=== PATIENT | male | born 1965 | race Caucasian/White ===

== ENCOUNTER 2017-02-12 21:15 | Emergency (ER) | payer MEDICARE, MEDICAID ==
[~2017-02-12] VITALS: Ht 175.3 cm; Wt 65.4 kg
[2017-02-12] MEDS ORDERED: NS 1,000 ML IV SCH (21:25)
[2017-02-12] MEDS ORDERED: LORazepam 2 MG/ML VIAL (J2060) IV STA (21:27)
[2017-02-12 21:48] LABS: BASO % 0.7 % (0.0-1.0); EOS # 0.1 K/mm3 (0.0-0.50); EOS % 1.4 % (0.0-3.0); LARGE UNSTAINED CELL # 0.2 K/mm3 (0.0-0.4); LARGE UNSTAINED CELL % 3.5 % (0.0-4.0); LYMPH # 3.1 K/mm3 (1.5-4.5); LYMPH % 41.2 % (24.0-44.0); MEAN CORPUSCULAR HEMOGLOBIN 34.2 pg (27.0-33.0); MEAN CORPUSCULAR HGB CONC 35.8 g/dl (32.0-36.5); MEAN CORPUSCULAR VOLUME 95.4 fl (80.0-96.0); MONO # 0.5 K/mm3 (0.0-0.8); MONO % 6.7 % (0.0-5.0); NEUTROPHILS # 3.2 K/mm3 (1.8-7.7); NEUTROPHILS % 46.5 % (36.0-66.0); PLATELET COUNT, AUTOMATED 276 k/mm3 (150-450); RED CELL DISTRIBUTION WIDTH 12.3 % (11.5-14.5); WHITE BLOOD COUNT 6.9 K/mm3 (4.0-10.0)
[2017-02-12 22:15] LABS: ANION GAP 11 MEQ/L (8-16); BLOOD UREA NITROGEN 9 MG/DL (7-18); CALCIUM LEVEL 8.8 MG/DL (8.5-10.1); CARBON DIOXIDE LEVEL 27 MEQ/L (21-32); CHLORIDE LEVEL 101 MEQ/L (98-107); CREATININE FOR GFR 0.96 MG/DL (0.70-1.30); GLOMERULAR FILTRATION RATE > 60.0 (>56); GLUCOSE, FASTING 90 MG/DL (70-105); POTASSIUM SERUM 4.5 MEQ/L (3.5-5.1); SODIUM LEVEL 139 MEQ/L (136-145)
--- NOTE | 2017-02-12 22:20 | REPUSA ---
CT of the cervical spine Clinical history: Pain. Technique: Multiple axial CT images were obtained through the cervical spine without administration o f contrast. Coronal and sagittal 3-D reconstructed images were also obtained. Comparison: None. Findings: The cervical vertebral bodies are in satisfactory positioning and alignment. No fractures or dislocat ions are demonstrated. The odontoid process is intact. Intervertebral disc spaces are well-maintained . There is no evidence of facet subluxation. The neural foramen appear grossly patent. The cervical c ranial junction is intact. The cervical spinal canal demonstrates normal caliber and contour without evidence of spinal stenosis. The surrounding soft tissues are within normal limits. Impression: Unremarkable CT examination of the cervical spine.
--- NOTE | 2017-02-12 22:30 | REPUSA ---
CT of the head Clinical history: trauma. Technique: Multiple axial CT images were obtained through the head without administration of contrast . Comparison: 01/26/2016. Findings: The ventricles and sulci are symmetric bilaterally. There is no evidence of acute hemorrhag e or infarct. There is no midline shift, mass effect, or extra-axial fluid collection. The osseous st ructures are unremarkable. The visualized paranasal sinuses and mastoid air cells are clear. Impression: Negative study.
[2017-02-13 12:05] VITALS: BP 112/78
== END 2017-02-13 12:48 | disposition home or self-care (01) ==
LOC: EDBD 21:15 → M ED 22:15
DX: F10.129 Alcohol abuse with intoxication, unspecified (principal); F70 Mild intellectual disabilities
CPT/HCPCS: 70450; 72125; 80048; 85025; 93041; 94760; 96374; 99285; G0480; J2060

== ENCOUNTER 2017-03-03 16:55 | Inpatient (IN) | payer MEDICARE, MEDICAID ==
[~2017-03-03] VITALS: Ht 167.6 cm; Wt 68.2 kg
[2017-03-03] MEDS ORDERED: NS 1,000 ML IV SCH (19:30)
[2017-03-03 20:11] LABS: BASO # 0.1 K/mm3 (0.0-0.2); BASO % 0.8 % (0.0-1.0); EOS # 0.1 K/mm3 (0.0-0.50); LARGE UNSTAINED CELL # 0.2 K/mm3 (0.0-0.4); LARGE UNSTAINED CELL % 1.8 % (0.0-4.0); LYMPH # 2.1 K/mm3 (1.5-4.5); LYMPH % 18.2 % (24.0-44.0); MEAN CORPUSCULAR HEMOGLOBIN 33.8 pg (27.0-33.0); MEAN CORPUSCULAR HGB CONC 34.2 g/dl (32.0-36.5); MEAN CORPUSCULAR VOLUME 98.9 fl (80.0-96.0); MONO # 0.5 K/mm3 (0.0-0.8); NEUTROPHILS # 7.6 K/mm3 (1.8-7.7); NEUTROPHILS % 73.2 % (36.0-66.0); PLATELET COUNT, AUTOMATED 312 k/mm3 (150-450); RED CELL DISTRIBUTION WIDTH 12.2 % (11.5-14.5); WHITE BLOOD COUNT 10.4 K/mm3 (4.0-10.0)
--- NOTE | 2017-03-03 20:12 | REP ---
MAXILLOFACIAL CT WITHOUT CONTRAST: HISTORY: Trauma. COMPARISON: 12/24/2012 The sinuses are clear. The ostiomeatal units are patent. The middle and inferior nasal turbinates are partially paradoxical. There is minimal deviation of the nasal septum to the right. The cribriform plate, medial caceres of the orbits and optic canals are intact. The carotid canals form a segment of the posterolateral caceres of the sphenoid sinus. There is no fracture. Increased soft tissue density is present overlying the buccal surface of the right maxilla and body and angle of the right mandible consistent with edema and/or hematoma. A small amount of subarachnoid and intraventricular hemorrhage is present. IMPRESSION: 1. There is no acute or chronic sinusitis. 2. There is no fracture. 3. There is edema and/or hematoma along the buccal surface of the right maxilla and body and angle of the right mandible. 4. Small amount of subarachnoid and intraventricular hemorrhage. The results were discussed with Dr. More at 7:30 pm this date. Signed by Daniel Muñoz MD 03/04/2017 08:12 A
[2017-03-03 20:23] LABS: ANION GAP 5 MEQ/L (8-16); BLOOD UREA NITROGEN 9 MG/DL (7-18); CALCIUM LEVEL 8.8 MG/DL (8.5-10.1); CARBON DIOXIDE LEVEL 29 MEQ/L (21-32); CHLORIDE LEVEL 106 MEQ/L (98-107); CREATININE FOR GFR 0.77 MG/DL (0.70-1.30); GLOMERULAR FILTRATION RATE > 60.0 (>56); GLUCOSE, FASTING 80 MG/DL (70-105); POTASSIUM SERUM 4.2 MEQ/L (3.5-5.1); SODIUM LEVEL 140 MEQ/L (136-145)
--- NOTE | 2017-03-03 20:23 | REP ---
CT HEAD WITHOUT CONTRAST: HISTORY: Trauma. COMPARISON: 02/12/2017 A small focus of increased attenuation is present in the left frontal lobe. This represents a small amount of subarachnoid hemorrhage or a tiny hemorrhagic contusion. There is no intraparenchymal mass or midline shift. The ventricular system and cortical sulci are dilated consistent with mild volume loss. A small amount of intraventricular hemorrhage is present. A very small acute subdural hematoma 1.5 mm in width is present overlying the left temporal lobe. There is no fracture. The visualized sinuses are clear. IMPRESSION: 1. There is a small focus of subarachnoid hemorrhage or possibly small hemorrhagic contusion in the left frontal lobe. 2. Small amount of intraventricular hemorrhage. 3. Small 1.5 mm acute subdural hematoma over the left temporal lobe. The results were discussed with Dr. More at 7:45 pm this date. Signed by Daniel Muñoz MD 03/04/2017 08:12 A
--- NOTE | 2017-03-03 20:26 | REP ---
CT CERVICAL SPINE WITHOUT CONTRAST: HISTORY: Trauma. COMPARISON: 02/12/2017 There is no acute fracture or subluxation. Disc bulges with associated osteophyte formation are present at the C3-4, C5-6 and C6-7 levels. A disc bulge is present at the C4-5 level. There is minimal narrowing of the spinal canal. Uncinate process hypertrophy is present at the C3-4, C5-6 and C6-7 levels. This produces minimal to mild narrowing of the neural foramina. The remaining neural foramina are patent. The C3-4 through C6-7 intervertebral discs are decreased in height consistent with disc degeneration. IMPRESSION: 1. There is no acute fracture or subluxation. 2. There is cervical spondylosis at the C3-4 through C6-7 levels. Signed by Daniel Muñoz MD 03/04/2017 08:11 A
[2017-03-03 20:55] LABS: INR 0.92
--- NOTE | 2017-03-03 23:30 | IPNPDOC ---
Text Note Date of Service The patient was seen on 03/03/17. NOTE Pt seen and examined by me. Pt h/o chronic etoh abuse a/w mech fall and ICH. The draft radiology read is: "A small amount of intraventricular hemorrhage is present. A very small acute subdural hematoma 1.5 mm in width is present overlying the left temporal lobe". Pt's MS is stable w/o evidence of acute delirium. He does report JONES, but no visual changes, N/V. He reports no other medical hx and is not on home medication. At this time, pt does not require admission to medicine, with his presenting problem ICH. Thank you for this consult with full consult note to follow. Akhil Liu MD Mar 03, 2017 23:30
[2017-03-04] VITALS (10 sets, daily range): BP systolic 131–167; BP diastolic 68–88
--- NOTE | 2017-03-04 04:07 | CR.PDOC ---
[facility] Consultation Consultation DATE OF CONSULTATION: Mar 03, 2017 at 16:55 PRIMARY CARE PHYSICIAN: None REFERRING PROVIDER: Dr More ATTENDING PHYSICIAN: Dr. Liu REASON FOR CONSULTATION/CHIEF COMPLAINT: ICH. HISTORY OF PRESENT ILLNESS: 51m PMH of chronic low back pain, chronic etoh abuse and past hospitalizations for acute etoh intoxication who presents after mechanical fall. Pt brought in by EMS after fall and head trauma. Pt hx of chronic etoh abuse and has been to ED multiple times for acute etoh intoxication. Currently his only complaint is mild JONES, but has denied progressivly worsening JONES, N/V, visual changes, focal motor deficit. Pt does not have hx of prior bleed and denies any significant PMH or chronic home medications. Review of chart shows pt was awake on arrival, but was aggressive and abusive (verbal and physical) initially, but has since calmed down. ALLERGIES: Please see below. HOME MEDICATIONS: Please see below. PAST MEDICAL HISTORY: 1. Chronic ETOH abuse. 2. Chronic LBP. PAST SURGICAL HISTORY: 1. Appendectomy. 2. Repair of L forearm lac (cut on window). 3. Repair of multiple extensor tendons in arms. FAMILY HISTORY: Denied any significant family history SOCIAL HISTORY: Tobacco use: Daily smoker ETOH: Chronic daily drinker Illicit drug use: Denied IV drug use: Denied REVIEW OF SYSTEMS: As per HPI, but somewhat limited due to fact pt was intoxicated. PHYSICAL EXAMINATION: VITAL SIGNS: Please see below. GENERAL APPEARANCE: Disheveled. Sleeping, but easily awakened. HEENT: Moist mucous membranes. RESPIRATORY: Good AE B/L. CTA B/L. No wheeze/rales/rhonchi appreciated. CARDIOVASCULAR: Normal S1S2. No murmur/gallop/rub. ABDOMEN: Soft. Non-tender, Non-distended. Normal BS. EXTREMITIES: No edema. NEUROLOGICAL: Sleeping, but easily awakened. CN II-XII grossly intact. No anisocoria/tongue-deviation/facial droop noted. PSYCHIATRIC: Intoxicated, cooperative in NAD. LABORATORY DATA: Please see below. ASSESSMENT/PLAN: 51m PMH of chronic etoh abuse and acute etoh intoxication who presents with mechanical fall and multiple foci of ICH 1. ICH-L frontal SAH, Intraventricular hemorrhage, 1.5mm acute L temporal SDH Pt neurologically intact No coagulopathy, normal hemoglobin BP controlled Pt's only complaint is asking when he can go home 2. ETOH dependence with chronic etoh abuse and intoxication Pt has had prior admits for acute etoh intoxication In 2006 pt admitted to inpatient unit for acute intoxication and R arm laceration when cut his R forearm on glass requiring surgical intervention Seen by psych then and noted to have mild MR in addition to etoh dependence Pt is a poor historian who denies hx of DT's/delirium/withdrawal seizures When hospitalized in 2006 there is no documented evidence of severe withdrawal sx or DT's (obtained from DC summary) At this time would place pt on ciwa protocol Withdrawal and seizure precautions Will order librium prn-to be given based on pt's ciwa score Monitor and replete lytes prn (magnesium/potassium) Will order b12, folate and mvi as well Would avoid ativan while admitted given pt admitted with ICH and want to avoid over-sedating/masking signs of progressive ICH Thank you for the courtesy of this consult will follow with you. No medical intervention needed at this time Thank you for the courtesy of this consult Please re-consult prn Vital Signs/I&O Vital Signs Date Time Temp Pulse Resp B/P (MAP) Pulse Ox O2 Delivery O2 Flow Rate FiO2 03/03/17 23:33 89 98 03/03/17 23:18 107/58 (74) 03/03/17 16:59 98.8 20 Room Air Laboratory Data Labs 24H Laboratory Tests 2 03/03/17 19:51: White Blood Count 10.4H, Red Blood Count 4.33, Hemoglobin 14.6, Hematocrit 42.8 , Mean Corpuscular Volume 98.9H, Mean Corpuscular Hemoglobin 33.8H, Mean Corpuscular Hemoglobin Concent 34.2, Red Cell Distribution Width 12.2, Platelet Count 312, Neutrophils (%) (Auto) 73.2H, Lymphocytes (%) (Auto) 18.2L, Monocytes (%) (Auto) 5.0, Eosinophils (%) (Auto) 1.0, Basophils (%) (Auto) 0.8, Neutrophils # (Auto) 7.6, Lymphocytes # (Auto) 2.1, Monocytes # (Auto) 0.5, Eosinophils # (Auto) 0.1, Basophils # (Auto) 0.1, Large Unclassified Cells % 1.8 , Large Unclassified Cells # 0.2, Anion Gap 5L, Glomerular Filtration Rate > 60.0, Blood Urea Nitrogen 9, Creatinine 0.77, Sodium Level 140, Potassium Level 4.2, Chloride Level 106, Carbon Dioxide Level 29, Calcium Level 8.8, Ethyl Alcohol Level 0.289H 03/03/17 20:26: Prothrombin Time 12.4, Prothromb Time International Ratio 0.92, Activated Partial Thromboplast Time 27.9 CBC/BMP Laboratory Tests 03/03/17 19:51 Red Blood Count 4.33, Mean Corpuscular Volume 98.9 H, Mean Corpuscular Hemoglobin 33.8 H, Mean Corpuscular Hemoglobin Concent 34.2, Red Cell Distribution Width 12.2, Neutrophils (%) (Auto) 73.2 H, Lymphocytes (%) (Auto) 18.2 L, Monocytes (%) (Auto) 5.0, Eosinophils (%) (Auto) 1.0, Basophils (%) ( Auto) 0.8, Neutrophils # (Auto) 7.6, Lymphocytes # (Auto) 2.1, Monocytes # (Auto ) 0.5, Eosinophils # (Auto) 0.1, Basophils # (Auto) 0.1, Calcium Level 8.8 Allergies Coded Allergies: No Known Drug Allergy (Verified Allergy, Unknown, 11/29/12) Home Medications Unable to Obtain Active Prescriptions or Reported Meds Akhil Liu MD Mar 04, 2017 00:07
[2017-03-04] MEDS ORDERED: LORazepam 2 MG TAB PO PRN (04:15)
[2017-03-04] MEDS ORDERED: chlordiazePOXIDE 25 MG CAP PO PRN (04:15)
[2017-03-04] MEDS: KCL 20MEQ IN D5/0.45NS 1000ML 1,000 ML IV SCH ×2 (04:34→16:45)
[2017-03-04 05:46] LABS: MEAN CORPUSCULAR HGB CONC 34.8 g/dl (32.0-36.5); MEAN CORPUSCULAR VOLUME 97.9 fl (80.0-96.0); RED CELL DISTRIBUTION WIDTH 12.3 % (11.5-14.5); WHITE BLOOD COUNT 6.7 K/mm3 (4.0-10.0)
[2017-03-04 06:08] LABS: ALBUMIN 3.3 GM/DL (3.2-5.2); ALBUMIN/GLOBULIN RATIO 1.03 (1.00-1.93); ALKALINE PHOSPHATASE 51 U/L (45-117); ALT/SGPT 29 U/L (12-78); ANION GAP 8 MEQ/L (8-16); AST/SGOT 17 U/L (15-37); BILIRUBIN,TOTAL 0.5 MG/DL (0.2-1.0); BLOOD UREA NITROGEN 8 MG/DL (7-18); CALCIUM LEVEL 8.4 MG/DL (8.5-10.1); CARBON DIOXIDE LEVEL 27 MEQ/L (21-32); CHLORIDE LEVEL 107 MEQ/L (98-107); CREATININE FOR GFR 0.76 MG/DL (0.70-1.30); GLOMERULAR FILTRATION RATE > 60.0 (>56); GLUCOSE, FASTING 71 MG/DL (70-105); MAGNESIUM LEVEL 1.9 MG/DL (1.8-2.4); PHOSPHORUS LEVEL 2.6 MG/DL (2.5-4.9); SODIUM LEVEL 142 MEQ/L (136-145); TOTAL PROTEIN 6.5 GM/DL (6.4-8.2)
[2017-03-04 07:02] LABS: METHADONE URINE NEGATIVE (NEGATIVE)
--- NOTE | 2017-03-04 08:56 | REP ---
CT HEAD WITHOUT CONTRAST: HISTORY: Head injury. COMPARISON: 03/03/2017. A punctate focus of increased density is present in the left frontal lobe. This represents a small amount of subarachnoid hemorrhage or small hemorrhagic contusion. There is no intraparenchymal mass or midline shift. A small amount of intraventricular hemorrhage is present. The ventricular system and cortical sulci are dilated consistent with mild volume loss. A 1.5 mm acute subdural hematoma is present overlying the left temporal lobe. There is no fracture. The visualized sinuses are clear. IMPRESSION: 1. There is a punctate focus of increased density in the left frontal lobe. This represents a small amount of subarachnoid hemorrhage or a small hemorrhagic contusion. 2. Small amount of intraventricular hemorrhage unchanged compared to the previous study. 3. Small 1.5 mm acute subdural hematoma over the left temporal lobe. Signed by Daniel Muñoz MD 03/04/2017 09:00 A
[2017-03-04] MEDS: FOLIC ACID 1 MG TAB PO SCH (08:57)
[2017-03-04] MEDS: MULTIVITAMINS/MINERALS THERAP 1 TAB PO SCH (08:57)
[2017-03-04] MEDS: THIAMINE 100 MG TAB PO SCH ×2 (08:57→21:43)
--- NOTE | 2017-03-04 09:27 | REP ---
PORTABLE CHEST, SINGLE VIEW: COMPARISON: 06/04/2007. CHEST: There is no evidence of acute infiltrate. No pleural effusion is seen. The heart is normal in size. The mediastinal silhouette is unremarkable. The visualized osseous structures are intact. IMPRESSION: No acute pulmonary disease. Signed by Marcelo Tobar MD 03/04/2017 04:23 P
--- NOTE | 2017-03-04 11:11 | ER ---
DATE OF CONSULTATION: 03/03/2017 REQUESTING PHYSICIAN: Dr. More I was asked to see this 51-year-old, inebriated gentleman with a subarachnoid hemorrhage. The patient was seen in the emergency room. He is a pleasant, 51-year-old gentleman who is already pacing in his room to get out of the hospital, claiming that he has to leave the hospital as he does not like the smell of the hospital. He is mostly incoherent and unable to give any medical history. He claims that he fell on the sidewalk because he drinks once a week. A bystander called an ambulance and he was brought to the hospital. The patient denied any symptoms. The patient categorically denied taking any medication at home. He claim that he is right handed and denies any major medical problems or surgical events. He is an unreliable historian. Available medical data and EHR were reviewed. CT scan was also reviewed. On examination, the patient was found to be awake, alert and oriented times three. Pupils are equal and reactive. Extraocular muscles are full. Moving all limbs equally and at request. He kept on getting off the stretcher and trying to walk and pulling his IV out. The patient was reassured several times. He showed evidence of some early peripheral neuropathy in his lower extremities with diminished deep tendon reflexes distally in his lower extremities. Plantars were downgoing with no clonus and there is no sensory level. Limited cerebellar examination showed dysrhythmia and dysmetria. Extraocular movements are full. He denies any diplopia, though there is a gross breakdown of the visual saccadic pursuits, which can explain his significant postural dizziness. CT scan of the head showed subarachnoid and intraventricular hemorrhage without any mass effect. My recommendations were discussed with Dr. More, who claimed the hospital policy dictates that a patient with a head injury needs to be admitted to the neurosurgical service. The hospitalist has seen the patient and will manage his delirium tremens and other medical issues as they arise. There is no family or friends around. I will observe the patient in the PCU and repeat a CT scan in the morning and go from there. CHRISTIAN
--- NOTE | 2017-03-04 23:10 | ECGEPIP ---
Stationary ECG Study [facility] Test Date: 2017-03-04 Pat Name: XENIA IBRAHIM Department: Room: [place] [address] Gender: M [employer]: JOSE ANTONIO : 1965 Requested By: ELEUTERIO Walsh Order Number: [id number] Reading MD: El Ball Measurements Intervals [place] Rate: 94 P: 48 TX: 162 QRS: 34 QRSD: 87 T: 30 QT: 328 QTc: 411 Interpretive Statements SINUS RHYTHM Poor R-wave progression. No significant change compared with 08/30/2011. Electronically Signed On 03-04-2017 23:10:22 EDT by El Ball
[2017-03-05] VITALS (11 sets, daily range): BP systolic 127–173; BP diastolic 76–93
[2017-03-05] MEDS: KCL 20MEQ IN D5/0.45NS 1000ML 1,000 ML IV SCH (04:25)
[2017-03-05] MEDS: FOLIC ACID 1 MG TAB PO SCH (08:43)
[2017-03-05] MEDS: THIAMINE 100 MG TAB PO SCH ×2 (08:43→20:44)
[2017-03-05] MEDS: MULTIVITAMINS/MINERALS THERAP 1 TAB PO SCH (08:43)
--- NOTE | 2017-03-05 13:44 | IPNPDOC ---
Subjective Date Seen The patient was seen on 03/05/17. Subjective Chief Complaint/HPI The patient is a 51-year-old male admitted with a reason for visit of Facial Injury. Events since last encounter no complaints except for some headache. Objective Physical Examination General Exam: Positive: Alert, Cooperative, No Acute Distress Eye Exam: Positive: PERRLA, Conjunctiva & lids normal, EOMI, Negative: Sclera icteric ENT Exam: Positive: Mucous membr. moist/pink, Tongue Midline Neck Exam: Positive: Supple, Negative: JVD, thyromegaly Chest Exam: Positive: Clear to auscultation, Normal air movement Heart Exam: Positive: Rate Normal, Regular Rhythm, Normal S1, Normal S2, Negative: Murmurs, Rubs Telemetry: Positive: No significant arrhythmia Abdomen Exam: Positive: Normal bowel sounds, Soft, Negative: Tenderness, Hepatospenomegaly Extremity Exam: Positive: Normal pulses, Negative: Clubbing, Cyanosis, Edema Skin Exam: Positive: Nl turgor and temperature, Negative: Rash, Breakdown Neuro Exam: Positive: Normal Speech, Strength at 5/5 X4 ext, Normal Tone Assessment /Plan Problems (1) Subdural hemorrhage Status: Acute Problem Text: after fall in an intoxicated state. plan as per neurosurgery (2) Intraventricular hemorrhage Status: Acute Problem Text: as per neurosurgery (3) Subarachnoid hemorrhage Status: Acute Problem Text: plan as per neurosurgery (4) Alcohol abuse Status: Chronic Problem Text: no signs of withdrawal at present. will continue to monitor continue thimin and multivitamins and librium prn Plan/VTE VTE Prophylaxis Ordered?: Yes VS, I&O, 24H, Fishbone Vital Signs/I&O Vital Signs Date Time Temp Pulse Resp B/P (MAP) Pulse Ox O2 Delivery O2 Flow Rate FiO2 03/05/17 12:30 98.3 100 20 133/88 (103) 100 Room Air I&O- Last 24 Hours up to 6 AM 03/05/17 06:00 Intake Total 3840 ml Output Total 100 ml Balance 3740 ml MUNA POLLACK MD Mar 05, 2017 13:44
[2017-03-06 00:34] VITALS: BP 133/84
[2017-03-06 06:00] VITALS: BP 122/78
[2017-03-06 06:45] VITALS: BP 122/78
[2017-03-06 07:28] LABS: MEAN CORPUSCULAR HEMOGLOBIN 33.9 pg (27.0-33.0); MEAN CORPUSCULAR HGB CONC 35.2 g/dl (32.0-36.5); MEAN CORPUSCULAR VOLUME 96.3 fl (80.0-96.0); RED CELL DISTRIBUTION WIDTH 12.2 % (11.5-14.5); WHITE BLOOD COUNT 4.6 K/mm3 (4.0-10.0)
[2017-03-06 08:01] LABS: ANION GAP 6 MEQ/L (8-16); BLOOD UREA NITROGEN 6 MG/DL (7-18); CALCIUM LEVEL 9.2 MG/DL (8.5-10.1); CARBON DIOXIDE LEVEL 30 MEQ/L (21-32); CHLORIDE LEVEL 102 MEQ/L (98-107); CREATININE FOR GFR 0.75 MG/DL (0.70-1.30); GLOMERULAR FILTRATION RATE > 60.0 (>56); GLUCOSE, FASTING 90 MG/DL (70-105); POTASSIUM SERUM 3.7 MEQ/L (3.5-5.1); SODIUM LEVEL 138 MEQ/L (136-145)
[2017-03-06] MEDS: THIAMINE 100 MG TAB PO SCH (09:00)
[2017-03-06] MEDS: FOLIC ACID 1 MG TAB PO SCH (09:00)
[2017-03-06] MEDS: MULTIVITAMINS/MINERALS THERAP 1 TAB PO SCH (09:00)
--- NOTE | 2017-03-06 09:46 | EEG ---
DATE OF EE03/05/2017 REFERRING PHYSICIAN: Braden Cabrera MD DIAGNOSIS: Head injury, encephalopathy. EEG NUMBER: [id number]. HISTORY: Patient is a 51-year-old man who was admitted at [facility] due to traumatic subarachnoid and intraventricular hemorrhage without mass effect. He is currently on thiamine, folic acid, multivitamin, and Librium. TECHNICAL DESCRIPTION: This digital EEG was recorded by 21 scalp, ear and 2 EKG electrodes and was reviewed in bipolar and referential montages following reformatting in 10-20 international electrode placement system. INTERPRETATION: Patient was noted to be in awake and drowsy states during this EEG. Resting awake background rhythm consisted of 9 Hz alpha activity measuring 15-40 microvolts in amplitude which was symmetric and reactive to eye opening. Attenuation of posterior dominant rhythm was seen during transition into drowsiness. No sleep was achieved. Hyperventilation could not be performed. Photic stimulation remained unremarkable. EKG revealed normal sinus rhythm. No focal, lateralizing or epileptiform abnormalities were seen. No clinical or electrographic seizures were recorded. CONCLUSION: This EEG in awake and drowsy states is within normal limits.
[2017-03-06 14:00] VITALS: BP 140/75
[2017-03-06 22:00] VITALS: BP 127/69
[2017-03-07] VITALS: BP 130/81
[2017-03-07] MEDS: THIAMINE 100 MG TAB PO SCH (03:55)
[2017-03-07 06:00] VITALS: BP 127/77
[2017-03-07 06:38] VITALS: BP 127/77
[2017-03-07 06:53] LABS: MEAN CORPUSCULAR HEMOGLOBIN 33.2 pg (27.0-33.0); MEAN CORPUSCULAR HGB CONC 34.3 g/dl (32.0-36.5); MEAN CORPUSCULAR VOLUME 96.8 fl (80.0-96.0); RED CELL DISTRIBUTION WIDTH 12.1 % (11.5-14.5); WHITE BLOOD COUNT 5.3 K/mm3 (4.0-10.0)
[2017-03-07 07:16] LABS: ANION GAP 5 MEQ/L (8-16); BLOOD UREA NITROGEN 8 MG/DL (7-18); CALCIUM LEVEL 8.9 MG/DL (8.5-10.1); CARBON DIOXIDE LEVEL 29 MEQ/L (21-32); CHLORIDE LEVEL 104 MEQ/L (98-107); GLOMERULAR FILTRATION RATE > 60.0 (>56); GLUCOSE, FASTING 84 MG/DL (70-105); POTASSIUM SERUM 3.9 MEQ/L (3.5-5.1); SODIUM LEVEL 138 MEQ/L (136-145)
[2017-03-07] MEDS: FOLIC ACID 1 MG TAB PO SCH (10:05)
[2017-03-07] MEDS: MULTIVITAMINS/MINERALS THERAP 1 TAB PO SCH (10:05)
[2017-03-07 14:00] VITALS: BP 119/71
[2017-03-07 14:11] VITALS: BP 131/73
--- NOTE | 2017-03-11 21:46 | DSES ---
DATE OF ADMISSION: 03/05/2017 DATE OF DISCHARGE: 03/07/2017 FINAL DIAGNOSIS: Multiple trauma, subarachnoid hemorrhage and intraventricular hemorrhage, acute head injury. HOSPITAL COURSE: I was asked to see this 51-year-old inebriated gentleman with a subarachnoid hemorrhage. He was seen in the emergency room, where he was found to be pleasant, who was pacing his room to get out of the hospital, claiming he has to leave the hospital as he did not like the smell of the hospital. He was mostly incoherent, unable to give any medical history, nevertheless, he was admitted to my service to manage his inebriation and all his medical issues. He was observed and was seen by the hospitalist and medical social workers. Eventually, the medical social workers decided that he is safe enough to be discharged. However, to my observation he was not cognitively safe for independent existence on account of his low IQ and severe dependence on alcohol. Nevertheless, after the social problems specialist were involved and other agencies visited his home and found out that he can live independently and thus he was discharged. Followup was subsequently discussed with the patient in the hope that he will follow them. During the course of his stay, an EEG was done which was normal. He never had any seizures or delirium tremens (DTs.).
== END 2017-03-07 18:08 | disposition home or self-care (01) | DRG 87 ==
LOC: M ED 16:55 → M ED INP 23:38 → M PCU 03-04 00:43 → OBSVTOIN 03-05 16:24 → M MSPAV 03-05 22:33
PROVIDERS: ADMIT Neurological Surgery; ATTEND Neurological Surgery
DX: S06.6X0A Traumatic subarachnoid hemorrhage without loss of consciousness, initial encounter (principal); S06.5X0A Traumatic subdural hemorrhage without loss of consciousness, initial encounter; F10.20 Alcohol dependence, uncomplicated; M54.5 Low back pain; F17.200 Nicotine dependence, unspecified, uncomplicated; W01.0XXA Fall on same level from slipping, tripping and stumbling without subsequent striking against object, initial encounter; Y92.480 Sidewalk as the place of occurrence of the external cause; Y93.01 Activity, walking, marching and hiking; Y99.9 Unspecified external cause status

== ENCOUNTER 2017-03-08 14:02 | Emergency (ER) | payer MEDICARE, MEDICAID ==
[~2017-03-08] VITALS: Ht 167.6 cm; Wt 69.2 kg
[2017-03-08 14:29] LABS: BASO # 0.1 K/mm3 (0.0-0.2); BASO % 1.3 % (0.0-1.0); EOS # 0.1 K/mm3 (0.0-0.50); EOS % 1.9 % (0.0-3.0); LARGE UNSTAINED CELL # 0.2 K/mm3 (0.0-0.4); LYMPH # 2.2 K/mm3 (1.5-4.5); LYMPH % 37.4 % (24.0-44.0); MEAN CORPUSCULAR HEMOGLOBIN 33.6 pg (27.0-33.0); MEAN CORPUSCULAR HGB CONC 34.8 g/dl (32.0-36.5); MEAN CORPUSCULAR VOLUME 96.4 fl (80.0-96.0); MONO # 0.5 K/mm3 (0.0-0.8); MONO % 9.7 % (0.0-5.0); NEUTROPHILS # 2.5 K/mm3 (1.8-7.7); NEUTROPHILS % 45.6 % (36.0-66.0); PLATELET COUNT, AUTOMATED 371 k/mm3 (150-450); RED CELL DISTRIBUTION WIDTH 12.4 % (11.5-14.5); WHITE BLOOD COUNT 5.4 K/mm3 (4.0-10.0)
[2017-03-08 14:48] LABS: ANION GAP 8 MEQ/L (8-16); BLOOD UREA NITROGEN 5 MG/DL (7-18); CALCIUM LEVEL 8.7 MG/DL (8.5-10.1); CARBON DIOXIDE LEVEL 27 MEQ/L (21-32); CHLORIDE LEVEL 105 MEQ/L (98-107); CREATININE FOR GFR 0.71 MG/DL (0.70-1.30); GLOMERULAR FILTRATION RATE > 60.0 (>56); GLUCOSE, FASTING 99 MG/DL (70-105); POTASSIUM SERUM 3.9 MEQ/L (3.5-5.1); SODIUM LEVEL 140 MEQ/L (136-145)
--- NOTE | 2017-03-08 15:29 | REP ---
CT HEAD WITHOUT CONTRAST: HISTORY: Seizure. COMPARISON: 03/04/2017 A punctate focus of increased density is present in the left frontal lobe. This represents a small hemorrhagic contusion that is decreased in size compared to the previous study. There is no intraparenchymal mass or midline shift. A small amount of intraventricular hemorrhage is present that is decreased compared to the previous study. The ventricular system and cortical sulci are dilated consistent with mild volume loss. There has been resolution of the previously noted 1.5 mm left temporal convexity subdural hematoma. There is no fracture. The visualized sinuses are clear. IMPRESSION: 1. Punctate left frontal lobe hemorrhagic contusion, decreased in size compared to the previous study. 2. Small amount of intraventricular hemorrhage, decreased compared to the previous study. 3. There has been resolution of the previously noted 1.5 mm left temporal convexity subdural hematoma. Signed by Daniel Muñoz MD 03/08/2017 03:42 P
[2017-03-08 19:36] VITALS: BP 106/70
== END 2017-03-08 19:37 | disposition home or self-care (01) ==
LOC: M ED 14:02
DX: S06.360A Traumatic hemorrhage of cerebrum, unspecified, without loss of consciousness, initial encounter (principal); F10.10 Alcohol abuse, uncomplicated; F17.210 Nicotine dependence, cigarettes, uncomplicated; W01.198A Fall on same level from slipping, tripping and stumbling with subsequent striking against other object, initial encounter; Y92.410 Unspecified street and highway as the place of occurrence of the external cause; Y93.01 Activity, walking, marching and hiking; Y99.9 Unspecified external cause status

== ENCOUNTER → 2017-04-11 | Outpatient (CLI) | payer MEDICARE, MEDICAID ==
[2017-04-11 13:31] LABS: BASO # 0.1 K/mm3 (0.0-0.2); BASO % 1.1 % (0.0-1.0); EOS # 0.2 K/mm3 (0.0-0.50); EOS % 3.1 % (0.0-3.0); LYMPH # 1.1 K/mm3 (1.5-4.5); LYMPH % 19.5 % (24.0-44.0); MEAN CORPUSCULAR HGB CONC 35.2 g/dl (32.0-36.5); MEAN CORPUSCULAR VOLUME 96.4 fl (80.0-96.0); MONO # 0.4 K/mm3 (0.0-0.8); MONO % 7.8 % (0.0-5.0); NEUTROPHILS # 3.7 K/mm3 (1.8-7.7); RED CELL DISTRIBUTION WIDTH 11.8 % (11.5-14.5); WHITE BLOOD COUNT 5.6 K/mm3 (4.0-10.0)
[2017-04-11 13:52] LABS: VITAMIN B12 LEVEL 397 PG/ML
[2017-04-11 13:53] LABS: FOLATE 13.3 NG/ML
[2017-04-11 13:57] LABS: ALBUMIN 3.9 GM/DL (3.2-5.2); ALBUMIN/GLOBULIN RATIO 1.22 (1.00-1.93); ALKALINE PHOSPHATASE 63 U/L (45-117); ALT/SGPT 31 U/L (12-78); ANION GAP 10 MEQ/L (8-16); AST/SGOT 31 U/L (15-37); BILIRUBIN,TOTAL 0.4 MG/DL (0.2-1.0); BLOOD UREA NITROGEN 12 MG/DL (7-18); CALCIUM LEVEL 8.5 MG/DL (8.5-10.1); CARBON DIOXIDE LEVEL 26 MEQ/L (21-32); CHLORIDE LEVEL 104 MEQ/L (98-107); CHOLESTEROL LEVEL 135 MG/DL (<200); CREATININE FOR GFR 0.94 MG/DL (0.70-1.30); GLOMERULAR FILTRATION RATE > 60.0 (>56); GLUCOSE, FASTING 146 MG/DL (70-105); POTASSIUM SERUM 4.1 MEQ/L (3.5-5.1); SODIUM LEVEL 140 MEQ/L (136-145); TOTAL PROTEIN 7.1 GM/DL (6.4-8.2); TRIGLYCERIDES LEVEL 117 MG/DL (<150)
== END ==
LOC: M WUC 08:58
PROVIDERS: ATTEND Physician Assistant Medical
DX: E78.2 Mixed hyperlipidemia (principal); E55.9 Vitamin D deficiency, unspecified; F10.129 Alcohol abuse with intoxication, unspecified

== ENCOUNTER → 2017-05-09 | Outpatient (CLI) | payer MEDICARE, MEDICAID ==
[2017-05-09 12:56] LABS: ANION GAP 8 MEQ/L (8-16); BLOOD UREA NITROGEN 9 MG/DL (7-18); CALCIUM LEVEL 8.1 MG/DL (8.5-10.1); CARBON DIOXIDE LEVEL 32 MEQ/L (21-32); CHLORIDE LEVEL 101 MEQ/L (98-107); CREATININE FOR GFR 0.75 MG/DL (0.70-1.30); GLOMERULAR FILTRATION RATE > 60.0 (>56); GLUCOSE, FASTING 83 MG/DL (70-105); POTASSIUM SERUM 4.1 MEQ/L (3.5-5.1); SODIUM LEVEL 141 MEQ/L (136-145)
== END ==
LOC: M WUC 08:39
PROVIDERS: ATTEND Physician Assistant Medical
DX: R73.9 Hyperglycemia, unspecified (principal)

== ENCOUNTER 2017-08-18 13:10 | Emergency (ER) | payer MEDICARE, MEDICAID | END 2017-08-18 13:53 | disposition left against medical advice (07) | LOC: M ED 13:10 | DX: M54.9 Dorsalgia, unspecified (principal); G89.29 Other chronic pain; F10.10 Alcohol abuse, uncomplicated; R00.9 Unspecified abnormalities of heart beat; R03.0 Elevated blood-pressure reading, without diagnosis of hypertension; Z98.890 Other specified postprocedural states | CPT/HCPCS: 99281 ==

== ENCOUNTER 2017-09-05 12:31 | Emergency (ER) | payer MEDICARE, MEDICAID | END 2017-09-05 14:34 | disposition left against medical advice (07) | LOC: M ED 12:31 | DX: Z53.21 Procedure and treatment not carried out due to patient leaving prior to being seen by health care provider (principal) ==

== ENCOUNTER 2017-09-05 17:19 | Emergency (ER) | payer MEDICARE, MEDICAID | END 2017-09-05 20:14 | disposition left against medical advice (07) | LOC: M ED 17:19 | DX: S69.90XA Unspecified injury of unspecified wrist, hand and finger(s), initial encounter (principal); Z53.21 Procedure and treatment not carried out due to patient leaving prior to being seen by health care provider | CPT/HCPCS: 99281 ==

== ENCOUNTER 2017-09-06 23:46 | Emergency (ER) | payer MEDICARE, MEDICAID | END 2017-09-07 01:06 | disposition home or self-care (01) | LOC: M ED 23:46 | DX: F10.120 Alcohol abuse with intoxication, uncomplicated (principal); S90.822A Blister (nonthermal), left foot, initial encounter; X58.XXXA Exposure to other specified factors, initial encounter; Y92.89 Other specified places as the place of occurrence of the external cause; M79.671 Pain in right foot; F17.210 Nicotine dependence, cigarettes, uncomplicated | CPT/HCPCS: 73620 ==

== ENCOUNTER 2017-09-19 00:43 | Observation (INO) | payer MEDICARE, MEDICAID ==
[2017-09-19 02:10] LABS: BEDSIDE GLUCOSE 108 MG/DL (70-105)
[2017-09-19 02:47] LABS: BASO % 0.6 % (0.0-1.0); EOS # 0.1 10^3/uL (0.0-0.50); EOS % 1.1 % (0.0-3.0); HEMOGLOBIN 13.8 g/dl (14.0-18.0); IMMATURE GRANULOCYTE % 0.4 % (0-0); LYMPH # 0.9 10^3/uL (1.5-4.5); LYMPH % 12.9 % (24.0-44.0); MEAN CORPUSCULAR HEMOGLOBIN 33.9 pg (27.0-33.0); MEAN CORPUSCULAR HGB CONC 35.4 g/dl (32.0-36.5); MEAN CORPUSCULAR VOLUME 95.8 fl (80.0-96.0); MONO # 1.1 10^3/uL (0.0-0.8); PLATELET COUNT, AUTOMATED 182 10^3/uL (150-450); RED BLOOD COUNT 4.07 10^6/uL (4.30-6.10); RED CELL DISTRIBUTION WIDTH 11.7 % (11.5-14.5); WHITE BLOOD COUNT 7.1 10^3/uL (4.0-10.0)
[2017-09-19 03:09] LABS: AMMONIA 26 uMOL/L (<32)
[2017-09-19 03:14] LABS: LACTIC ACID SEPSIS PROTOCOL 2.3 MMOL/L (0.4-2.0)
[2017-09-19 03:14] LABS: ALBUMIN 3.7 GM/DL (3.2-5.2); ALBUMIN/GLOBULIN RATIO 1.09 (1.00-1.93); ALT/SGPT 122 U/L (12-78); ANION GAP 9 MEQ/L (8-16); AST/SGOT 93 U/L (7-37); BILIRUBIN,DIRECT 0.1 MG/DL (0.0-0.2); BILIRUBIN,TOTAL 0.4 MG/DL (0.2-1.0); BLOOD UREA NITROGEN 6 MG/DL (7-18); CALCIUM LEVEL 8.8 MG/DL (8.5-10.1); CARBON DIOXIDE LEVEL 27 MEQ/L (21-32); CHLORIDE LEVEL 104 MEQ/L (98-107); CPK CREATINE PHOSPHOKINASE 121 U/L (39-308); CREATININE FOR GFR 0.73 MG/DL (0.70-1.30); ETHYL ALCOHOL (ETHANOL) 0.005 % (0.000-0.010); GLOMERULAR FILTRATION RATE > 60.0 (>56); GLUCOSE, FASTING 94 MG/DL (70-100); MAGNESIUM LEVEL 2.6 MG/DL (1.8-2.4); POTASSIUM SERUM 4.2 MEQ/L (3.5-5.1); SALICYLATE LEVEL < 1.7 MG/DL (5.0-30.0); SODIUM LEVEL 140 MEQ/L (136-145); TOTAL PROTEIN 7.1 GM/DL (6.4-8.2); TROPONIN I < 0.02 NG/ML (< 0.10)
[2017-09-19 03:15] LABS: ACETAMINOPHEN LEVEL < 2.0 UG/ML (10.0-30.0); ALKALINE PHOSPHATASE 99 U/L (45-117); CK-MB VALUE MASS 1.9 NG/ML (0.0-3.6); MB/CK RELATIVE INDEX 1.57 (< OR =4)
[2017-09-19 03:27] LABS: OSMOLALITY SERUM 286 MOSM/KG (275-295)
[2017-09-19] MEDS: NS 1,000 ML IV (04:22)
[2017-09-19 04:42] LABS: KETONE, URINE AUTO RFX NEGATIVE (NEGATIVE); LEUKOCYTE ESTERASE UR AUTO RFX NEGATIVE (NEGATIVE); MUCUS, URINE RFX SMALL (NEGATIVE); NITRITE, URINE AUTO RFX NEGATIVE (NEGATIVE); RBC, URINE AUTO RFX 10 /HPF (0-3); SPECIFIC GRAVITY UR AUTO RFX 1.019 (1.002-1.035); SQUAM EPITHELIAL CELL UR AURFX 0 /HPF (0-6)
[2017-09-19 04:46] LABS: WBC, URINE AUTO RFX 13 /HPF (0-3)
[2017-09-19 05:51] LABS: AMPHETAMINES LEVEL URINE NEGATIVE (NEGATIVE); BARBITURATES URINE NEGATIVE (NEGATIVE); BENZODIAZEPINES URINE NEGATIVE (NEGATIVE); CANNABINOIDS URINE NEGATIVE (NEGATIVE); COCAINE METABOLITE URINE NEGATIVE (NEGATIVE); METHADONE URINE NEGATIVE (NEGATIVE); OPIATES URINE NEGATIVE (NEGATIVE); PHENCYCLIDINE URINE NEGATIVE (NEGATIVE)
[2017-09-19] MEDS ORDERED: OXAZEPAM 10 MG CAP PO (08:15)
[2017-09-19] MEDS: ENOXAPARIN 40 MG/0.4 ML SYRINGE (J1650) SC (09:00)
[2017-09-19] MEDS: MULTIVITAMIN -ADULT INJECTION 10 ML, THIAMINE INJection 100 MG, FOLIC ACID 1 MG in NS 1... IV (10:00)
[2017-09-19 11:45] LABS: FOLATE 14.7 NG/ML (>5.4); VITAMIN B12 LEVEL 338 PG/ML (247-911)
[2017-09-19 15:17] LABS: CK-MB VALUE MASS 7.4 NG/ML (0.0-3.6); CPK CREATINE PHOSPHOKINASE 278 U/L (39-308); MB/CK RELATIVE INDEX 2.66 (< OR =4); TROPONIN I < 0.02 NG/ML (< 0.10)
[2017-09-19] MEDS ORDERED: PROHANCE 279.3MG/ML 15ML VIAL (A9576) As Ordered (21:08)
[2017-09-19 23:09] LABS: CPK CREATINE PHOSPHOKINASE 229 U/L (39-308); TROPONIN I < 0.02 NG/ML (< 0.10)
[2017-09-19 23:10] LABS: CK-MB VALUE MASS 4.8 NG/ML (0.0-3.6); MB/CK RELATIVE INDEX 2.09 (< OR =4)
[2017-09-20 05:56] LABS: HEMATOCRIT 35.5 % (42.0-52.0); HEMOGLOBIN 12.1 g/dl (14.0-18.0); MEAN CORPUSCULAR HEMOGLOBIN 33.1 pg (27.0-33.0); MEAN CORPUSCULAR HGB CONC 34.1 g/dl (32.0-36.5); PLATELET COUNT, AUTOMATED 159 10^3/uL (150-450); RED BLOOD COUNT 3.66 10^6/uL (4.30-6.10); RED CELL DISTRIBUTION WIDTH 11.7 % (11.5-14.5); WHITE BLOOD COUNT 7.1 10^3/uL (4.0-10.0)
[2017-09-20 06:24] LABS: ANION GAP 8 MEQ/L (8-16); BLOOD UREA NITROGEN 5 MG/DL (7-18); CALCIUM LEVEL 8.7 MG/DL (8.5-10.1); CARBON DIOXIDE LEVEL 29 MEQ/L (21-32); CHLORIDE LEVEL 102 MEQ/L (98-107); CPK CREATINE PHOSPHOKINASE 174 U/L (39-308); GLOMERULAR FILTRATION RATE > 60.0 (>56); GLUCOSE, FASTING 80 MG/DL (70-100); POTASSIUM SERUM 3.5 MEQ/L (3.5-5.1); SODIUM LEVEL 139 MEQ/L (136-145); TROPONIN I < 0.02 NG/ML (< 0.10)
[2017-09-20 06:25] LABS: CK-MB VALUE MASS 3.6 NG/ML (0.0-3.6); MB/CK RELATIVE INDEX 2.06 (< OR =4)
[2017-09-20] MEDS: ENOXAPARIN 40 MG/0.4 ML SYRINGE (J1650) SC (09:00)
[2017-09-20] MEDS: THIAMINE 100 MG TAB PO (10:03)
== END 2017-09-20 16:46 | disposition home or self-care (01) ==
LOC: M ED 00:43 → M ED INP 07:55 → M MSPAV 14:22
PROVIDERS: Family Medicine
DX: R40.20 Unspecified coma (principal); F10.220 Alcohol dependence with intoxication, uncomplicated; F17.210 Nicotine dependence, cigarettes, uncomplicated; Z79.899 Other long term (current) drug therapy
CPT/HCPCS: A9576

== ENCOUNTER 2018-01-19 12:02 | Emergency (ER) | payer MEDICARE, MEDICAID | END 2018-01-19 12:51 | disposition home or self-care (01) | LOC: M ED 12:02 | DX: F10.120 Alcohol abuse with intoxication, uncomplicated (principal); F17.200 Nicotine dependence, unspecified, uncomplicated | CPT/HCPCS: 99284 ==

== ENCOUNTER 2018-02-03 12:03 | Emergency (ER) | payer MEDICARE, MEDICAID ==
[2018-02-03 12:44] LABS: AMPHETAMINES LEVEL URINE NEGATIVE (NEGATIVE); BARBITURATES URINE NEGATIVE (NEGATIVE); BENZODIAZEPINES URINE NEGATIVE (NEGATIVE); CANNABINOIDS URINE NEGATIVE (NEGATIVE); COCAINE METABOLITE URINE NEGATIVE (NEGATIVE); METHADONE URINE NEGATIVE (NEGATIVE); OPIATES URINE NEGATIVE (NEGATIVE); PHENCYCLIDINE URINE NEGATIVE (NEGATIVE)
[2018-02-03 13:16] LABS: BASO # 0.1 10^3/uL (0.0-0.2); BASO % 1.4 % (0.0-1.0); EOS # 0.1 10^3/uL (0.0-0.50); EOS % 1.6 % (0.0-3.0); HEMATOCRIT 43.9 % (42.0-52.0); HEMOGLOBIN 15.5 g/dl (13.5-17.5); IMMATURE GRANULOCYTE % 0.2 % (0-3.0); LYMPH # 2.2 10^3/uL (1.5-4.5); LYMPH % 38.7 % (24.0-44.0); MEAN CORPUSCULAR HEMOGLOBIN 33.3 pg (27.0-33.0); MEAN CORPUSCULAR HGB CONC 35.3 g/dl (32.0-36.5); MEAN CORPUSCULAR VOLUME 94.2 fl (80.0-96.0); MONO # 0.7 10^3/uL (0.0-0.8); MONO % 11.6 % (0.0-5.0); NEUTROPHILS # 2.7 10^3/uL (1.8-7.7); NEUTROPHILS % 46.5 % (36.0-66.0); PLATELET COUNT, AUTOMATED 264 10^3/uL (150-450); RED BLOOD COUNT 4.66 10^6/uL (4.30-6.10); RED CELL DISTRIBUTION WIDTH 11.9 % (11.5-14.5); WHITE BLOOD COUNT 5.8 10^3/uL (4.0-10.0)
[2018-02-03] MEDS: MULTIVITAMIN -ADULT INJECTION 10 ML, THIAMINE INJection 100 MG, FOLIC ACID 1 MG in NS 1... IV (13:16)
[2018-02-03 13:37] LABS: ALBUMIN 4.2 GM/DL (3.2-5.2); ALBUMIN/GLOBULIN RATIO 1.14 (1.00-1.93); ALKALINE PHOSPHATASE 80 U/L (45-117); ALT/SGPT 86 U/L (12-78); ANION GAP 15 MEQ/L (8-16); AST/SGOT 80 U/L (7-37); BILIRUBIN,DIRECT 0.1 MG/DL (0.0-0.2); BILIRUBIN,TOTAL 0.5 MG/DL (0.2-1.0); BLOOD UREA NITROGEN 12 MG/DL (7-18); CALCIUM LEVEL 8.9 MG/DL (8.5-10.1); CARBON DIOXIDE LEVEL 24 MEQ/L (21-32); CHLORIDE LEVEL 99 MEQ/L (98-107); CPK CREATINE PHOSPHOKINASE 150 U/L (39-308); CREATININE FOR GFR 0.99 MG/DL (0.70-1.30); GLOMERULAR FILTRATION RATE > 60.0 (>56); GLUCOSE, FASTING 129 MG/DL (70-100); POTASSIUM SERUM 4.2 MEQ/L (3.5-5.1); SALICYLATE LEVEL < 1.7 MG/DL (5.0-30.0); SODIUM LEVEL 138 MEQ/L (136-145); TOTAL PROTEIN 7.9 GM/DL (6.4-8.2); TROPONIN I < 0.02 NG/ML (< 0.10)
[2018-02-03 13:48] LABS: CK-MB VALUE MASS 2.8 NG/ML (<3.6); MB/CK RELATIVE INDEX 1.86 (< OR =4); THYROID STIMULATING HORMONE 0.709 uIU/ML (0.358-3.740)
[2018-02-03 14:00] LABS: ACETAMINOPHEN LEVEL < 2.0 UG/ML (10.0-30.0); ETHYL ALCOHOL (ETHANOL) 0.306 % (0.000-0.010)
== END 2018-02-03 16:01 | disposition home or self-care (01) ==
LOC: M ED 12:03
DX: F10.129 Alcohol abuse with intoxication, unspecified (principal); G89.29 Other chronic pain; M54.9 Dorsalgia, unspecified; Z72.0 Tobacco use; Z87.81 Personal history of (healed) traumatic fracture
CPT/HCPCS: J3411

== ENCOUNTER 2018-04-06 12:11 | Emergency (ER) | payer MEDICARE, MEDICAID ==
[2018-04-06] MEDS: ACETAMINOPHEN 325 MG TAB PO (13:32)
== END 2018-04-06 13:47 | disposition home or self-care (01) ==
LOC: M ED 12:11
DX: M79.672 Pain in left foot (principal); Z87.820 Personal history of traumatic brain injury; M54.9 Dorsalgia, unspecified; Z96.7 Presence of other bone and tendon implants; I70.202 Unspecified atherosclerosis of native arteries of extremities, left leg; M85.872 Other specified disorders of bone density and structure, left ankle and foot
CPT/HCPCS: 73630

== ENCOUNTER 2018-05-05 19:54 | Inpatient (IN) | payer MEDICARE, MEDICAID ==
[2018-05-05 21:01] LABS: HEMATOCRIT 48.6 % (42.0-52.0); HEMOGLOBIN 16.3 g/dl (13.5-17.5); MEAN CORPUSCULAR HEMOGLOBIN 33.4 pg (27.0-33.0); MEAN CORPUSCULAR HGB CONC 33.5 g/dl (32.0-36.5); MEAN CORPUSCULAR VOLUME 99.6 fl (80.0-96.0); PLATELET COUNT, AUTOMATED 354 10^3/uL (150-450); RED BLOOD COUNT 4.88 10^6/uL (4.30-6.10); RED CELL DISTRIBUTION WIDTH 11.4 % (11.5-14.5); WHITE BLOOD COUNT 6.1 10^3/uL (4.0-10.0)
[2018-05-05 21:42] LABS: AMPHETAMINES LEVEL URINE NEGATIVE (NEGATIVE); BARBITURATES URINE NEGATIVE (NEGATIVE); BENZODIAZEPINES URINE NEGATIVE (NEGATIVE); CANNABINOIDS URINE NEGATIVE (NEGATIVE); COCAINE METABOLITE URINE NEGATIVE (NEGATIVE); METHADONE URINE NEGATIVE (NEGATIVE); OPIATES URINE NEGATIVE (NEGATIVE); PHENCYCLIDINE URINE NEGATIVE (NEGATIVE)
[2018-05-05 21:43] LABS: ALBUMIN 4.5 GM/DL (3.2-5.2); ALBUMIN/GLOBULIN RATIO 1.13 (1.00-1.93); ALKALINE PHOSPHATASE 94 U/L (45-117); ALT/SGPT 52 U/L (12-78); ANION GAP 10 MEQ/L (8-16); AST/SGOT 52 U/L (7-37); BILIRUBIN,DIRECT 0.2 MG/DL (0.0-0.2); BILIRUBIN,TOTAL 0.5 MG/DL (0.2-1.0); BLOOD UREA NITROGEN 12 MG/DL (7-18); CALCIUM LEVEL 9.2 MG/DL (8.5-10.1); CARBON DIOXIDE LEVEL 29 MEQ/L (21-32); CHLORIDE LEVEL 101 MEQ/L (98-107); ETHYL ALCOHOL (ETHANOL) 0.291 % (0.000-0.010); GLOMERULAR FILTRATION RATE > 60.0 (>56); GLUCOSE, FASTING 74 MG/DL (70-100); POTASSIUM SERUM 4.4 MEQ/L (3.5-5.1); SALICYLATE LEVEL < 1.7 MG/DL (5.0-30.0); SODIUM LEVEL 140 MEQ/L (136-145); TOTAL PROTEIN 8.5 GM/DL (6.4-8.2)
[2018-05-05 21:44] LABS: ACETAMINOPHEN LEVEL < 2.0 UG/ML (10.0-30.0)
[2018-05-06] MEDS ORDERED: MOM 30ML SUSPENSION UDC PO (13:45)
[2018-05-06] MEDS ORDERED: ACETAMINOPHEN TAB 650MG DOSE (2X325MG) PO (13:45)
[2018-05-06] MEDS ORDERED: traZODone 50 MG TAB PO (13:45)
[2018-05-06] MEDS ORDERED: MAALOX 30 ML SUSP *UDC PO (13:45)
[2018-05-06] MEDS: OXAZEPAM 15 MG CAP PO ×2 (14:49→21:00)
[2018-05-07] MEDS: OXAZEPAM 15 MG CAP PO ×2 (09:47→21:00)
[2018-05-07] MEDS: MULTIVITAMINS/MINERALS THERAP 1 TAB PO (17:00)
[2018-05-07] MEDS: THIAMINE 100 MG TAB PO (17:00)
[2018-05-07] MEDS: FOLIC ACID 1 MG TAB PO (17:00)
[2018-05-08] MEDS: THIAMINE 100 MG TAB PO (08:57)
[2018-05-08] MEDS: OXAZEPAM 15 MG CAP PO ×2 (08:57→21:37)
[2018-05-08] MEDS: MULTIVITAMINS/MINERALS THERAP 1 TAB PO (08:57)
[2018-05-08] MEDS: FOLIC ACID 1 MG TAB PO (08:57)
[2018-05-08] MEDS: INFLUENZA QUADRIVALENT PF VACCINE 0.5ML SYRINGE (90686) IM (09:00)
[2018-05-08 09:18] LABS: ALBUMIN/GLOBULIN RATIO 1.14 (1.00-1.93); ALKALINE PHOSPHATASE 77 U/L (45-117); ALT/SGPT 49 U/L (12-78); ANION GAP 7 MEQ/L (8-16); AST/SGOT 42 U/L (7-37); BILIRUBIN,TOTAL 0.9 MG/DL (0.2-1.0); BLOOD UREA NITROGEN 14 MG/DL (7-18); CALCIUM LEVEL 9.4 MG/DL (8.5-10.1); CARBON DIOXIDE LEVEL 29 MEQ/L (21-32); CHLORIDE LEVEL 100 MEQ/L (98-107); CREATININE FOR GFR 0.81 MG/DL (0.70-1.30); GLOMERULAR FILTRATION RATE > 60.0 (>56); GLUCOSE, FASTING 85 MG/DL (70-100); SODIUM LEVEL 136 MEQ/L (136-145); TOTAL PROTEIN 7.5 GM/DL (6.4-8.2)
[2018-05-08] MEDS: CitaloPRAM (CeleXA) 20 MG TAB PO (10:30)
[2018-05-08] MEDS: ARIPiprazole 2 MG TAB PO (10:44)
[2018-05-08 11:34] LABS: HEPATITIS B SURFACE ANTIGEN NEGATIVE (NEGATIVE)
[2018-05-08 11:36] LABS: HEPATITIS A ANTIBODY IGM NEGATIVE (NEGATIVE); HEPATITIS B CORE ANTIBODY IGM NEGATIVE (NEGATIVE); HEPATITIS B SURFACE ANTIGEN NEGATIVE (NEGATIVE)
[2018-05-08 11:36] LABS: HEPATITIS C VIRUS ABY INDEX 0.1 INDEX (<0.8)
[2018-05-08 12:00] LABS: HEPATITIS C VIRUS ABY INDEX 0.1 INDEX (<0.8)
[2018-05-08 12:00] LABS: HEPATITIS B CORE ANTIBODY IGM NEGATIVE (NEGATIVE)
[2018-05-08 12:03] LABS: HEPATITIS A ANTIBODY IGM NEGATIVE (NEGATIVE)
[2018-05-09] MEDS: THIAMINE 100 MG TAB PO (08:27)
[2018-05-09] MEDS: FOLIC ACID 1 MG TAB PO (08:27)
[2018-05-09] MEDS: ARIPiprazole 2 MG TAB PO (08:27)
[2018-05-09] MEDS: OXAZEPAM 15 MG CAP PO (08:27)
[2018-05-09] MEDS: MULTIVITAMINS/MINERALS THERAP 1 TAB PO (08:27)
[2018-05-09] MEDS: CitaloPRAM (CeleXA) 20 MG TAB PO (08:27)
[2018-05-10] MEDS: CitaloPRAM (CeleXA) 20 MG TAB PO (08:31)
[2018-05-10] MEDS: MULTIVITAMINS/MINERALS THERAP 1 TAB PO (08:31)
[2018-05-10] MEDS: THIAMINE 100 MG TAB PO (08:31)
[2018-05-10] MEDS: FOLIC ACID 1 MG TAB PO (08:31)
[2018-05-10] MEDS: OXAZEPAM 15 MG CAP PO (08:31)
[2018-05-10] MEDS: ARIPiprazole 2 MG TAB PO (08:31)
[2018-05-11] MEDS: ARIPiprazole 2 MG TAB PO (08:30)
[2018-05-11] MEDS: THIAMINE 100 MG TAB PO (08:30)
[2018-05-11] MEDS: FOLIC ACID 1 MG TAB PO (08:30)
[2018-05-11] MEDS: CitaloPRAM (CeleXA) 20 MG TAB PO (08:30)
[2018-05-11] MEDS: MULTIVITAMINS/MINERALS THERAP 1 TAB PO (08:30)
== END 2018-05-11 14:05 | disposition home or self-care (01) | DRG 897 ==
LOC: M ED 19:54 → M ED INP 05-06 13:31 → M PSY 05-06 15:13
PROVIDERS: Psychiatry & Neurology Psychiatry
DX: F10.159 Alcohol abuse with alcohol-induced psychotic disorder, unspecified (principal); F79 Unspecified intellectual disabilities; Z79.899 Other long term (current) drug therapy; Z91.5 Personal history of self-harm; M54.9 Dorsalgia, unspecified; F17.228 Nicotine dependence, chewing tobacco, with other nicotine-induced disorders; R94.5 Abnormal results of liver function studies

== ENCOUNTER 2018-05-31 16:06 | Emergency (ER) | payer MEDICARE, MEDICAID ==
[2018-05-31] MEDS: LIDOCAINE W/EPINEPHRINE 1% 20ML VIAL SC (17:15)
== END 2018-05-31 17:38 | disposition home or self-care (01) ==
LOC: M ED 16:06
DX: S01.111A Laceration without foreign body of right eyelid and periocular area, initial encounter (principal); S00.81XA Abrasion of other part of head, initial encounter; F10.120 Alcohol abuse with intoxication, uncomplicated; V18.0XXA Pedal cycle driver injured in noncollision transport accident in nontraffic accident, initial encounter; Y92.410 Unspecified street and highway as the place of occurrence of the external cause; F32.9 Major depressive disorder, single episode, unspecified; M54.9 Dorsalgia, unspecified; F17.220 Nicotine dependence, chewing tobacco, uncomplicated; Z79.899 Other long term (current) drug therapy
CPT/HCPCS: 70450

== ENCOUNTER 2018-08-16 22:54 | Emergency (ER) | payer MEDICARE, MEDICAID ==
[~2018-08-16] VITALS: Ht 167.6 cm; Wt 68.2 kg
[~2018-08-16 22:54] MED LIST: ARIP2TAB PO; CELE20TA PO; FOLI1TAB5 PO; THIA100TA PO; TRAZO50TA PO; VITMTA PO
[2018-08-16 23:03] VITALS: BP 184/84
[2018-08-16] MEDS ORDERED: KETOROLAC 60 MG/2 ML VIAL (J1885) IM ONE (23:15)
[2018-08-16] MEDS ORDERED: NAPR-49 PO (23:24)
== END 2018-08-16 23:56 | disposition home or self-care (01) ==
LOC: EDBD 22:54 → M ED 22:54
DX: G89.29 Other chronic pain (principal); M54.5 Low back pain; Z79.899 Other long term (current) drug therapy; F10.229 Alcohol dependence with intoxication, unspecified
CPT/HCPCS: 96372; 99284; J1885

== ENCOUNTER 2019-02-03 11:58 | Emergency (ER) | payer MEDICARE, MEDICAID ==
[~2019-02-03] VITALS: Ht 167.6 cm; Wt 72.7 kg
[~2019-02-03 11:58] MED LIST changes: +ARIP1TAB4 PO; -ARIP2TAB PO; +FOLI1TAB11 PO; -FOLI1TAB5 PO; +NAPR-837 PO; +TRAZ1TAB10 PO; -TRAZO50TA PO
--- NOTE | 2019-02-03 12:34 | REP ---
CT Head without contrast HISTORY: Trauma COMPARISON: 05/31/1980 Areas of decreased attenuation are present in the periventricular white matter. This represents small-vessel ischemic disease. There is no intraparenchymal hemorrhage, acute infarct, mass or midline shift. The ventricular system and cortical sulci are dilated consistent with mild volume loss. There is no extra cerebral collection. There is no fracture. The visualized sinuses are clear. IMPRESSION: 1. Small vessel ischemic disease. 2. Mild volume loss. Electronically Signed by Daniel Muñoz MD 02/03/2019 12:26 P
[2019-02-03 18:00] VITALS: BP 121/77
== END 2019-02-03 18:01 | disposition home or self-care (01) ==
LOC: EDBD 11:58 → M ED 11:58
DX: F10.129 Alcohol abuse with intoxication, unspecified (principal); G89.29 Other chronic pain; M54.9 Dorsalgia, unspecified; Z79.899 Other long term (current) drug therapy

== ENCOUNTER 2019-04-25 20:27 | Emergency (ER) | payer MEDICARE, MEDICAID ==
[~2019-04-25] VITALS: Ht 157.5 cm; Wt 72.7 kg
[2019-04-26 02:31] LABS: BASO # 0.1 10^3/uL (0.0-0.2); BASO % 0.9 % (0.0-1.0); EOS # 0.2 10^3/uL (0.0-0.5); EOS % 4.1 % (0.0-3.0); HEMATOCRIT 37.3 % (42.0-52.0); HEMOGLOBIN 11.7 g/dl (13.5-17.5); LYMPH # 2.2 10^3/uL (1.5-5.0); MEAN CORPUSCULAR HEMOGLOBIN 29.5 pg (27.0-33.0); MEAN CORPUSCULAR HGB CONC 31.4 g/dl (32.0-36.5); MONO # 0.6 10^3/uL (0.0-0.8); MONO % 10.7 % (0.0-5.0); NEUTROPHILS # 2.4 10^3/uL (1.5-8.5); NEUTROPHILS % 43.9 % (36.0-66.0); PLATELET COUNT, AUTOMATED 353 10^3/uL (150-450); RED BLOOD COUNT 3.97 10^6/uL (4.30-6.10); WHITE BLOOD COUNT 5.4 10^3/uL (4.0-10.0)
[2019-04-26 02:59] LABS: BLOOD UREA NITROGEN 4 MG/DL (7-18); CALCIUM LEVEL 8.2 MG/DL (8.5-10.1); CARBON DIOXIDE LEVEL 20 MEQ/L (21-32); CHLORIDE LEVEL 116 MEQ/L (98-107); CREATININE FOR GFR 0.85 MG/DL (0.70-1.30); ETHYL ALCOHOL (ETHANOL) 0.272 % (0.000-0.010); GLOMERULAR FILTRATION RATE > 60.0 (>56); GLUCOSE, FASTING 86 MG/DL (70-100); POTASSIUM SERUM 4.3 MEQ/L (3.5-5.1); SODIUM LEVEL 146 MEQ/L (136-145)
[2019-04-26 04:49] VITALS: BP 125/77
== END 2019-04-26 05:09 | disposition home or self-care (01) ==
LOC: M ED 20:27
DX: F10.129 Alcohol abuse with intoxication, unspecified (principal); H55.00 Unspecified nystagmus; Z79.1 Long term (current) use of non-steroidal anti-inflammatories (NSAID); Z79.899 Other long term (current) drug therapy
CPT/HCPCS: 80048; 85025; 99284; G0480

== ENCOUNTER 2019-06-26 16:22 | Emergency (ER) | payer MEDICARE, MEDICAID ==
[~2019-06-26] VITALS: Ht 162.6 cm; Wt 72.7 kg
[2019-06-26 16:38] VITALS: BP 116/75
--- NOTE | 2019-06-26 18:16 | REPVR ---
PROCEDURE INFORMATION: Exam: CT Head Without Contrast Exam date and time: 06/26/2019 6:02 PM Clinical history: 53 years old, male; Injury or trauma; Fall; Initial encounter; Blunt trauma (contusions or hematomas) TECHNIQUE: Imaging protocol: Computed tomography of the head without contrast. Radiation optimization: All CT scans at this facility use at least one of these dose optimization techniques: automated exposure control; mA and/or kV adjustment per patient size (includes targeted exams where dose is matched to clinical indication); or iterative reconstruction. COMPARISON: CT Head without contrast 02/03/2019 12:03 PM FINDINGS: Brain: Normal. No hemorrhage. Unremarkable white matter. No mass effect. Ventricles: Normal. No ventriculomegaly. Bones/joints: Unremarkable. No acute fracture. Sinuses: Visualized sinuses are unremarkable. No fluid levels. Mastoid air cells: Visualized mastoid air cells are well aerated. Soft tissues: Unremarkable. IMPRESSION: No acute intracranial abnormality. Electronically signed by: Wolf Crouch On 06/26/2019 18:15:27 PM
--- NOTE | 2019-06-26 18:19 | REPVR ---
PROCEDURE INFORMATION: Exam: CT Cervical Spine Without Contrast Exam date and time: 06/26/2019 6:02 PM Clinical history: 53 years old, male; Injury or trauma; Fall; Initial encounter; Blunt trauma TECHNIQUE: Imaging protocol: Computed tomography images of the cervical spine without contrast. Radiation optimization: All CT scans at this facility use at least one of these dose optimization techniques: automated exposure control; mA and/or kV adjustment per patient size (includes targeted exams where dose is matched to clinical indication); or iterative reconstruction. COMPARISON: CT Spine,cervical w/o contrast 02/03/2018 2:52 PM FINDINGS: Vertebrae: There is a finding which is most likely chronic although clinical correlation to exclude alignment abnormalities related to acute ligamentous injury is suggested. Discs/Spinal canal/Neural foramina: Disc space narrowing is demonstrated at C3-4, C5-6 and C6-7 with small intervertebral osteophytes at the lower 2 cervical levels. Mild degenerative changes at the atlantoaxial joint. Moderate to severe foraminal narrowing on the right and moderate foraminal narrowing on the left at C3, moderate foraminal narrowing on the left and mild to moderate foraminal narrowing on the right at C5, and bilateral moderate foraminal narrowing at C6 secondary to uncinate joint hypertrophic changes. Small disc osteophyte complexes demonstrated at C3-4, C5-6 and C6-7 effacing the ventral subarachnoid space without significant cord impingement. Soft tissues: Unremarkable. Lungs: Lung apices are normal. IMPRESSION: 1. There is a finding which is most likely chronic although clinical correlation to exclude alignment abnormalities related to acute ligamentous injury is suggested. 2. Degenerative spondylosis. 3. No other acute findings. No fracture. Electronically signed by: Wolf Crouch On 06/26/2019 18:19:22 PM
--- NOTE | 2019-06-26 18:21 | REPVR ---
PROCEDURE INFORMATION: Exam: CT Maxillofacial Without Contrast Exam date and time: 06/26/2019 6:02 PM Clinical history: 53 years old, male; Injury or trauma; Fall; Initial encounter; Blunt trauma (contusions or hematomas); Forehead TECHNIQUE: Imaging protocol: Computed tomography images of the face without contrast. Radiation optimization: All CT scans at this facility use at least one of these dose optimization techniques: automated exposure control; mA and/or kV adjustment per patient size (includes targeted exams where dose is matched to clinical indication); or iterative reconstruction. COMPARISON: CT Maxilofacial w/out contrast 05/31/2018 4:32 PM FINDINGS: Orbits: Orbits are normal. Globes are unremarkable. Sinuses: Normal. No air-fluid levels. Bones/joints: No acute fracture. Soft tissues: Soft tissue edema involving the soft tissues of the forehead. IMPRESSION: 1. Soft tissue edema involving the soft tissues of the forehead. No fracture. 2. Otherwise unremarkable. Electronically signed by: Wolf Crouch On 06/26/2019 18:21:46 PM
[2019-06-26] MEDS ORDERED: LIDOCAINE W/EPINEPHRINE 1% 20ML VIAL SC ONE (18:30)
== END 2019-06-26 21:12 | disposition home or self-care (01) ==
LOC: EDBD 16:22 → M ED 16:22
DX: F10.129 Alcohol abuse with intoxication, unspecified (principal); S01.111A Laceration without foreign body of right eyelid and periocular area, initial encounter; X58.XXXA Exposure to other specified factors, initial encounter; Y92.9 Unspecified place or not applicable; Y93.9 Activity, unspecified; Y99.9 Unspecified external cause status; F41.9 Anxiety disorder, unspecified; F32.9 Major depressive disorder, single episode, unspecified; F10.10 Alcohol abuse, uncomplicated; F17.220 Nicotine dependence, chewing tobacco, uncomplicated

== ENCOUNTER 2019-07-06 13:06 | Emergency (ER) | payer MEDICARE, MEDICAID ==
[~2019-07-06] VITALS: Ht 167.6 cm; Wt 72.7 kg
[2019-07-06 14:27] VITALS: BP 131/76
== END 2019-07-06 14:30 | disposition home or self-care (01) ==
LOC: M ED 13:06
DX: Z48.02 Encounter for removal of sutures (principal); F17.220 Nicotine dependence, chewing tobacco, uncomplicated

== ENCOUNTER 2020-01-20 18:23 | Emergency (ER) | payer MEDICARE, MEDICAID ==
[~2020-01-20] VITALS: Ht 162.6 cm; Wt 72.7 kg
[2020-01-20] MEDS ORDERED: LORazepam 2 MG/ML VIAL IV STA (19:07)
[2020-01-20] MEDS ORDERED: LORazepam 2 MG/ML VIAL IM STA (19:08)
[2020-01-20] MEDS ORDERED: LORazepam 2 MG/ML VIAL As Ordered ONE (19:16)
[2020-01-20 19:25] LABS: HEMATOCRIT 30.9 % (42.0-52.0); MEAN CORPUSCULAR HEMOGLOBIN 23.3 pg (27.0-33.0); MEAN CORPUSCULAR HGB CONC 29.1 g/dl (32.0-36.5); MEAN CORPUSCULAR VOLUME 79.8 fl (80.0-96.0); PLATELET COUNT, AUTOMATED 367 10^3/uL (150-450); RED BLOOD COUNT 3.87 10^6/uL (4.30-6.10); WHITE BLOOD COUNT 5.1 10^3/uL (4.0-10.0)
[2020-01-20 20:13] LABS: ACETAMINOPHEN LEVEL < 2.0 UG/ML (10.0-30.0); ALBUMIN 3.6 GM/DL (3.2-5.2); ALT/SGPT 23 U/L (12-78); BILIRUBIN,DIRECT 0.1 MG/DL (0.0-0.2); BILIRUBIN,TOTAL 0.3 MG/DL (0.2-1.0); BLOOD UREA NITROGEN 3 MG/DL (7-18); CALCIUM LEVEL 8.4 MG/DL (8.5-10.1); CARBON DIOXIDE LEVEL 27 MEQ/L (21-32); CHLORIDE LEVEL 103 MEQ/L (98-107); CPK CREATINE PHOSPHOKINASE 110 U/L (39-308); ETHYL ALCOHOL (ETHANOL) 0.325 % (0.000-0.010); GLOMERULAR FILTRATION RATE > 60.0 (>56); GLUCOSE, FASTING 93 MG/DL (70-100); POTASSIUM SERUM 4.1 MEQ/L (3.5-5.1); SALICYLATE LEVEL < 1.7 MG/DL (5.0-30.0); SODIUM LEVEL 139 MEQ/L (136-145); TOTAL PROTEIN 7.5 GM/DL (6.4-8.2)
--- NOTE | 2020-01-20 20:28 | REPVR ---
PROCEDURE INFORMATION: Exam: CT Head Without Contrast Exam date and time: 01/20/2020 8:03 PM Age: 54 years old Clinical indication: Injury or trauma; Fall; Initial encounter; Blunt trauma (contusions or hematomas); Additional info: Head injury; AMS TECHNIQUE: Imaging protocol: Computed tomography of the head without contrast. Radiation optimization: All CT scans at this facility use at least one of these dose optimization techniques: automated exposure control; mA and/or kV adjustment per patient size (includes targeted exams where dose is matched to clinical indication); or iterative reconstruction. COMPARISON: CT Head without contrast 06/26/2019 6:09 PM FINDINGS: Brain: There is a stable area of hypodense encephalomalacia involving the medial right frontal lobe, consistent with an old infarct. This is stable. No acute intracranial hemorrhage is visualized. The white-judge differentiation is otherwise preserved demonstrating no acute territorial type infarct. There are periventricular foci of white matter hypodensity, likely representing small vessel ischemic disease in a patient this age. The acuity of the white matter disease is indeterminate. There is no midline shift. Ventricles: Mild to moderate stable ventriculomegaly. Mild sulcal atrophy also visualized. A cavum septum pellucidum variant is identified. Bones/joints: The calvarium demonstrates no evidence for a depressed fracture. Sinuses: Visualized sinuses are unremarkable. No fluid levels. Mastoid air cells: Minimal mucosal thickening/effusion within inferior left mastoid air cells. Vasculature: Intracranial atherosclerosis visualized. Soft tissues: Soft tissue swelling/hematoma involving the frontal scalp. IMPRESSION: 1. No acute intracranial hemorrhage or acute territorial type infarct. 2. Soft tissue swelling/hematoma involving the frontal scalp. 3. There is a stable area of encephalomalacia involving the medial right frontal lobe, consistent with an old infarct. This is stable. 4. There are periventricular foci of white matter hypodensity, likely representing small vessel ischemic disease in a patient this age. 5. Mild to moderate stable ventriculomegaly. Mild sulcal atrophy also visualized. Electronically signed by: Toni Snider On 01/20/2020 20:27:43 PM
--- NOTE | 2020-01-20 20:55 | REPVR ---
PROCEDURE INFORMATION: Exam: CT Cervical Spine Without Contrast Exam date and time: 01/20/2020 8:03 PM Age: 54 years old Clinical indication: Injury or trauma; Fall; Initial encounter; Blunt trauma; Additional info: AMS; Fall TECHNIQUE: Imaging protocol: Computed tomography images of the cervical spine without contrast. Radiation optimization: All CT scans at this facility use at least one of these dose optimization techniques: automated exposure control; mA and/or kV adjustment per patient size (includes targeted exams where dose is matched to clinical indication); or iterative reconstruction. COMPARISON: CT Spine,cervical w/o contrast 06/26/2019 6:[address] 06/26/2019. FINDINGS: Vertebrae: No acute cervical spine fracture. The facet alignment is preserved bilaterally. The occipital condyles and C1-C2 articulations appear intact. Mild retrolisthesis of C3 on C4. A decrease in disc height is identified at C3-C4, C5-C6, and C6-C7, with endplate irregularity and sclerosis. A tiny mineralized density is identified superior to the dens process, which is a stable finding. Discs/Spinal canal/Neural foramina: Spondylosis is visualized at multiple cervical levels. Mild narrowing of the thecal sac is identified at C2-C3 and C3-C4. Varying degrees of neural foraminal narrowing are identified at multiple cervical levels. Other bones/joints: Stable abnormal morphology of the bilateral zygomatic arches, consistent with old fractures. Soft tissues: No significant prevertebral soft tissue swelling. Lymph nodes: Nonspecific mildly enlarged level 1 and level 2 cervical lymph nodes are visualized. Lungs: No pneumothorax, as visualized. Vasculature: Atherosclerotic changes. IMPRESSION: 1. No acute cervical spine fracture. 2. Mild retrolisthesis of C3 on C4. 3. Spondylosis is visualized at multiple cervical levels. 4. Mild narrowing of the thecal sac is identified at C2-C3 and C3-C4. 5. Additional findings described above. Electronically signed by: Toni Snider On 01/20/2020 20:55:18 PM
[2020-01-21 00:46] LABS: HEMATOCRIT 30.2 % (42.0-52.0); HEMOGLOBIN 8.8 g/dl (13.5-17.5)
[2020-01-21 01:10] LABS: ETHYL ALCOHOL (ETHANOL) 0.257 % (0.000-0.010)
[2020-01-21 02:19] LABS: PERCENT SATURATION 3.8 % (19.7-50.0)
[2020-01-21] MEDS ORDERED: FERR325T3 PO (03:17)
[2020-01-21 07:19] VITALS: BP 112/76
[2020-01-21 11:10] LABS: FOLATE 17.7 NG/ML
== END 2020-01-21 08:35 | disposition home or self-care (01) ==
LOC: M ED 18:23
DX: F10.129 Alcohol abuse with intoxication, unspecified (principal); D50.9 Iron deficiency anemia, unspecified; Y90.1 Blood alcohol level of 20-39 mg/100 ml
CPT/HCPCS: 36415; 70450; 72125; 80048; 80076; 82550; 82607; 82728; 82746; 83550; 84443; 85014; 85018; 85027; 96372; 99285; G0480; J2060

== ENCOUNTER 2020-01-21 19:20 | Emergency (ER) | payer MEDICARE, MEDICAID ==
[~2020-01-21 19:20] MED LIST changes: +FERR325T3 PO
[2020-01-21 20:13] LABS: AMPHETAMINES LEVEL URINE NEGATIVE (NEGATIVE); BARBITURATES URINE NEGATIVE (NEGATIVE); BENZODIAZEPINES URINE NEGATIVE (NEGATIVE); CANNABINOIDS URINE NEGATIVE (NEGATIVE); COCAINE METABOLITE URINE NEGATIVE (NEGATIVE); METHADONE URINE NEGATIVE (NEGATIVE); OPIATES URINE NEGATIVE (NEGATIVE); PHENCYCLIDINE URINE NEGATIVE (NEGATIVE)
[2020-01-22 07:07] VITALS: BP 135/73
== END 2020-01-22 07:15 | disposition home or self-care (01) ==
LOC: M ED 19:20
DX: F10.129 Alcohol abuse with intoxication, unspecified (principal)

== ENCOUNTER 2020-02-10 20:07 | Emergency (ER) | payer MEDICARE, MEDICAID ==
[2020-02-10] MEDS ORDERED: NS 1,000 ML IV ONE (20:15)
[2020-02-10 21:01] LABS: BLOOD UREA NITROGEN 3 MG/DL (7-18); CALCIUM LEVEL 8.6 MG/DL (8.5-10.1); CARBON DIOXIDE LEVEL 24 MEQ/L (21-32); CHLORIDE LEVEL 105 MEQ/L (98-107); CPK CREATINE PHOSPHOKINASE 99 U/L (39-308); CREATININE FOR GFR 0.73 MG/DL (0.70-1.30); GLOMERULAR FILTRATION RATE > 60.0 (>56); GLUCOSE, FASTING 88 MG/DL (70-100); POTASSIUM SERUM 4.4 MEQ/L (3.5-5.1); SODIUM LEVEL 136 MEQ/L (136-145)
[2020-02-11 04:13] VITALS: BP 128/71
== END 2020-02-11 04:16 | disposition home or self-care (01) ==
LOC: M ED 20:07
DX: F10.129 Alcohol abuse with intoxication, unspecified (principal)
CPT/HCPCS: 80048; 82550; 99284; G0480

== ENCOUNTER 2020-02-26 14:19 | Emergency (ER) | payer MEDICARE, MEDICAID ==
[~2020-02-26] VITALS: Ht 167.6 cm; Wt 72.7 kg
--- NOTE | 2020-02-26 15:29 | REP ---
Clinical: Trauma. Comparison: 01/20/2020 . Findings: Age-related atrophy and microvascular ischemic changes are appreciated. The ventricles and sulci are symmetric. Tobar-white differentiation is maintained. There is no evidence for acute intracranial hemorrhage, mass/mass effect, pathology or infarction. No extra-axial fluid collection. Calvarium is intact. Paranasal sinuses and mastoid air cells are clear. Impression: Age related atrophy and microvascular ischemic changes. No acute intracranial hemorrhage, infarction, or mass/mass effect. Electronically Signed by Neal Mendoza MD 02/26/2020 03:21 P
--- NOTE | 2020-02-26 15:31 | REP ---
Clinical: Trauma. Technique: Axial noncontrast images from the skull base to the thoracic inlet with coronal and sagittal re-formations. Comparison: 01/20/2020, 06/26/2019. Findings: There is no evidence for acute fracture / compression injury or acute subluxation. Chronic retrolisthesis at the C3-4 level along with advanced degenerative disc osteophyte complexes primarily involving C5-6, C6-7, and to a lesser extent C4-5 again noted. Spinal canal is patent. Posterior elements and spinous processes are intact. Paravertebral soft tissues are within normal limits. Impression: 1. Advanced multilevel degenerative changes similar to prior examinations. 2. No evidence for acute cervical spine trauma/injury. Electronically Signed by Neal Mendoza MD 02/26/2020 03:24 P
[2020-02-26 16:18] VITALS: BP 116/60
== END 2020-02-26 19:56 | disposition home or self-care (01) ==
LOC: M ED 14:19
DX: F10.10 Alcohol abuse, uncomplicated (principal); F41.9 Anxiety disorder, unspecified; F32.9 Major depressive disorder, single episode, unspecified; F17.220 Nicotine dependence, chewing tobacco, uncomplicated; M25.78 Osteophyte, vertebrae; M50.322 Other cervical disc degeneration at C5-C6 level; I67.82 Cerebral ischemia

== ENCOUNTER 2020-03-12 22:15 | Emergency (ER) | payer MEDICARE, MEDICAID ==
[2020-03-12 22:36] VITALS: BP 147/80
== END 2020-03-12 22:40 | disposition home or self-care (01) ==
LOC: M ED 22:15
DX: F10.129 Alcohol abuse with intoxication, unspecified (principal)

== ENCOUNTER 2021-09-30 01:25 | Emergency (ER) | payer MEDICARE, MEDICAID ==
[~2021-09-30] VITALS: Ht 167.6 cm; Wt 72.5 kg
[2021-09-30] MEDS ORDERED: ACETAMINOPHEN 325 MG TAB PO ONE (06:20)
[2021-09-30 11:27] VITALS: BP 128/72
== END 2021-09-30 11:35 | disposition home or self-care (01) ==
LOC: EDBD 01:25 → M ED 01:25
DX: S82.041A Displaced comminuted fracture of right patella, initial encounter for closed fracture (principal); X58.XXXA Exposure to other specified factors, initial encounter; Y92.9 Unspecified place or not applicable; Y93.9 Activity, unspecified; Y99.9 Unspecified external cause status; Z59.00 Homelessness unspecified; F41.9 Anxiety disorder, unspecified; F32.9 Major depressive disorder, single episode, unspecified; F17.200 Nicotine dependence, unspecified, uncomplicated; F10.10 Alcohol abuse, uncomplicated

== ENCOUNTER 2021-10-06 19:35 | Emergency (ER) | payer MEDICARE, MEDICAID ==
[2021-10-06] MEDS ORDERED: LORazepam 2 MG TAB PO PRN (20:10)
[2021-10-06] MEDS ORDERED: MULTIVITAMIN -ADULT INJECTION 10 ML, THIAMINE INJection 100 MG, FOLIC ACID 1 MG in NS 1... IV ONE (20:10)
[2021-10-06 20:34] LABS: BASO # 0.1 10^3/uL (0.0-0.2); BASO % 0.7 % (0.0-1.0); EOS # 0.2 10^3/uL (0.0-0.5); EOS % 1.8 % (0.0-3.0); HEMATOCRIT 32.9 % (42.0-52.0); HEMOGLOBIN 9.4 g/dl (13.5-17.5); LYMPH # 1.9 10^3/uL (1.5-5.0); LYMPH % 21.4 % (24.0-44.0); MEAN CORPUSCULAR HEMOGLOBIN 21.1 pg (27.0-33.0); MEAN CORPUSCULAR HGB CONC 28.6 g/dl (32.0-36.5); MEAN CORPUSCULAR VOLUME 73.9 fl (80.0-96.0); MONO # 0.8 10^3/uL (0.0-0.8); MONO % 9.3 % (2.0-8.0); NEUTROPHILS % 66.6 % (36.0-66.0); PLATELET COUNT, AUTOMATED 402 10^3/uL (150-450); RED BLOOD COUNT 4.45 10^6/uL (4.30-6.10)
[2021-10-06 20:51] LABS: AMPHETAMINES LEVEL URINE NEGATIVE (NEGATIVE); BARBITURATES URINE NEGATIVE (NEGATIVE); BENZODIAZEPINES URINE NEGATIVE (NEGATIVE); CANNABINOIDS URINE NEGATIVE (NEGATIVE); COCAINE METABOLITE URINE NEGATIVE (NEGATIVE); METHADONE URINE NEGATIVE (NEGATIVE); OPIATES URINE NEGATIVE (NEGATIVE); PHENCYCLIDINE URINE NEGATIVE (NEGATIVE)
[2021-10-06 21:17] LABS: BLOOD UREA NITROGEN 8 MG/DL (7-18); CARBON DIOXIDE LEVEL 25 MEQ/L (21-32); CHLORIDE LEVEL 102 MEQ/L (98-107); CREATININE FOR GFR 0.82 MG/DL (0.70-1.30); GLOMERULAR FILTRATION RATE > 60.0 (>56); GLUCOSE, FASTING 76 MG/DL (70-100); POTASSIUM SERUM 3.8 MEQ/L (3.5-5.1); SODIUM LEVEL 137 MEQ/L (136-145)
[2021-10-06 21:18] LABS: ACETAMINOPHEN LEVEL < 2.0 UG/ML (10.0-30.0); ALBUMIN 3.7 GM/DL (3.2-5.2); ALT/SGPT 23 U/L (12-78); BILIRUBIN,DIRECT < 0.1 MG/DL (0.0-0.2); BILIRUBIN,TOTAL 0.2 MG/DL (0.2-1.0); CALCIUM LEVEL 8.3 MG/DL (8.5-10.1); ETHYL ALCOHOL (ETHANOL) 0.337 % (0.000-0.010); SALICYLATE LEVEL < 1.7 MG/DL (5.0-30.0); TOTAL PROTEIN 7.6 GM/DL (6.4-8.2)
[2021-10-06] MEDS ORDERED: DEXTROSE 50% 50 ML SYRINGE IV STA (21:25)
[2021-10-07 07:32] VITALS: BP 128/69
== END 2021-10-07 11:18 | disposition home or self-care (01) ==
LOC: M ED 19:35
DX: F10.129 Alcohol abuse with intoxication, unspecified (principal); I45.19 Other right bundle-branch block; F17.200 Nicotine dependence, unspecified, uncomplicated; S01.81XA Laceration without foreign body of other part of head, initial encounter; W10.8XXA Fall (on) (from) other stairs and steps, initial encounter; Y92.018 Other place in single-family (private) house as the place of occurrence of the external cause
CPT/HCPCS: 12011; 70450; 70486; 71260; 72125; 74177; 80048; 80076; 80143; 80307; 81001; 82077; 82150; 82550; 82553; 83690; 84443; 84484; 85025; 85610; 85730; 86850; 86900; 86901; 87798; 90471; 90715; 93005; 93041; 94760; 96365; 96366; 96374; 99285; J3411; Q9967

== ENCOUNTER 2021-10-07 13:52 | Emergency (ER) | payer MEDICARE, MEDICAID ==
[2021-10-07] MEDS ORDERED: NS 1,000 ML IV ONE (14:00)
[2021-10-07] MEDS ORDERED: ISOVUE-370 76% 100ML VIAL As Ordered ONE (14:07)
[2021-10-07 14:22] LABS: BASO # 0.1 10^3/uL (0.0-0.2); BASO % 0.5 % (0.0-1.0); EOS % 0.2 % (0.0-3.0); HEMATOCRIT 33.4 % (42.0-52.0); HEMOGLOBIN 9.6 g/dl (13.5-17.5); LYMPH # 0.8 10^3/uL (1.5-5.0); LYMPH % 7.6 % (24.0-44.0); MEAN CORPUSCULAR HEMOGLOBIN 21.4 pg (27.0-33.0); MEAN CORPUSCULAR HGB CONC 28.7 g/dl (32.0-36.5); MEAN CORPUSCULAR VOLUME 74.6 fl (80.0-96.0); NEUTROPHILS # 8.2 10^3/uL (1.5-8.5); NEUTROPHILS % 81.3 % (36.0-66.0); PLATELET COUNT, AUTOMATED 391 10^3/uL (150-450); RED BLOOD COUNT 4.48 10^6/uL (4.30-6.10); WHITE BLOOD COUNT 10.1 10^3/uL (4.0-10.0)
[2021-10-07 14:45] VITALS: BP 149/88
[2021-10-07 14:50] LABS: INR 1.05; PROTHROMBIN TIME 14.1 SECONDS (12.7-14.5)
[2021-10-07] MEDS ORDERED: BOOSTRIX/ADACEL VACCINE (DIPHTH/PERTUSS/ACELL/TETANUS) 0.5ML SYR IM ONE (14:50)
[2021-10-07 14:51] LABS: CK-MB VALUE MASS 2.8 NG/ML (<3.6); MB/CK RELATIVE INDEX 1.83 (< OR =4); PARTIAL THROMBOPLASTIN TIME 30.1 SECONDS (25.9-37.0)
[2021-10-07 15:18] LABS: ALBUMIN 3.8 GM/DL (3.2-5.2); ALT/SGPT 23 U/L (12-78); AMYLASE 31 U/L (25-115); BILIRUBIN,DIRECT 0.1 MG/DL (0.0-0.2); BILIRUBIN,TOTAL 0.4 MG/DL (0.2-1.0); BLOOD UREA NITROGEN 13 MG/DL (7-18); CALCIUM LEVEL 8.6 MG/DL (8.5-10.1); CARBON DIOXIDE LEVEL 22 MEQ/L (21-32); CHLORIDE LEVEL 101 MEQ/L (98-107); CREATININE FOR GFR 1.03 MG/DL (0.70-1.30); ETHYL ALCOHOL (ETHANOL) 0.321 % (0.000-0.010); GLOMERULAR FILTRATION RATE > 60.0 (>56); GLUCOSE, FASTING 90 MG/DL (70-100); LIPASE 66 U/L (73-393); POTASSIUM SERUM 4.4 MEQ/L (3.5-5.1); SODIUM LEVEL 136 MEQ/L (136-145); TOTAL PROTEIN 7.7 GM/DL (6.4-8.2)
[2021-10-07] MEDS ORDERED: DEXTROSE 50% 50 ML SYRINGE As Ordered ONE (15:18)
[2021-10-07] MEDS ORDERED: DEXTROSE 50% 50 ML SYRINGE IV STA (15:26)
[2021-10-07 16:50] LABS: APPEARANCE, URINE CLEAR (CLEAR); BACTERIA, URINE AUTO NEGATIVE (NEGATIVE); BILIRUBIN, URINE AUTO NEGATIVE (NEGATIVE); BLOOD, URINE BLOOD NEGATIVE (NEGATIVE); COLOR, URINE STRAW (YELLOW); GLUCOSE, URINE (UA) AUTO NEGATIVE (NEGATIVE); KETONE, URINE AUTO NEGATIVE (NEGATIVE); LEUKOCYTE ESTERASE, URINE AUTO NEGATIVE (NEGATIVE); MUCUS, URINE SMALL (NEGATIVE); NITRITE, URINE AUTO NEGATIVE (NEGATIVE); PROTEIN, URINE AUTO NEGATIVE (NEGATIVE); RBC, URINE AUTO 0 /HPF (0-3); SPECIFIC GRAVITY URINE AUTO 1.017 (1.002-1.035); SQUAMOUS EPITHELIAL CELL UR AU 0 /HPF (0-6); UROBILINOGEN, URINE AUTO 0.2 mg/dL (0.0-2.0); WBC, URINE AUTO 0 /HPF (0-3)
[2021-10-07] MEDS ORDERED: LIDOCAINE W/EPINEPHRINE 1% 20ML VIAL SC ONE (16:50)
[2021-10-07 17:08] LABS: AMPHETAMINES LEVEL URINE NEGATIVE (NEGATIVE); BARBITURATES URINE NEGATIVE (NEGATIVE); BENZODIAZEPINES URINE NEGATIVE (NEGATIVE); CANNABINOIDS URINE NEGATIVE (NEGATIVE); COCAINE METABOLITE URINE NEGATIVE (NEGATIVE); METHADONE URINE NEGATIVE (NEGATIVE); OPIATES URINE NEGATIVE (NEGATIVE); PHENCYCLIDINE URINE NEGATIVE (NEGATIVE)
== END 2021-10-07 18:47 | disposition home or self-care (01) ==
LOC: EDBD 13:52 → M ED 13:52
DX: S01.81XA Laceration without foreign body of other part of head, initial encounter (principal); W10.8XXA Fall (on) (from) other stairs and steps, initial encounter; Y92.018 Other place in single-family (private) house as the place of occurrence of the external cause; F10.229 Alcohol dependence with intoxication, unspecified; Y90.1 Blood alcohol level of 20-39 mg/100 ml; F41.9 Anxiety disorder, unspecified; F33.9 Major depressive disorder, recurrent, unspecified; Z79.899 Other long term (current) drug therapy

== ENCOUNTER 2021-10-17 10:39 | Emergency (ER) | payer MEDICARE, MEDICAID ==
[~2021-10-17] VITALS: Ht 167.6 cm; Wt 69.9 kg
[2021-10-17 10:40] VITALS: BP 136/69
== END 2021-10-17 11:40 | disposition home or self-care (01) ==
LOC: M ED 10:39
DX: Z48.02 Encounter for removal of sutures (principal)

== ENCOUNTER 2021-10-17 16:44 | Emergency (ER) | payer MEDICARE, MEDICAID ==
[2021-10-17] MEDS ORDERED: NS 1,000 ML IV ONE (17:00)
[2021-10-17 17:14] LABS: BASO # 0.1 10^3/uL (0.0-0.2); BASO % 0.9 % (0.0-1.0); EOS # 0.1 10^3/uL (0.0-0.5); EOS % 1.9 % (0.0-3.0); HEMATOCRIT 34.1 % (42.0-52.0); HEMOGLOBIN 9.7 g/dl (13.5-17.5); LYMPH # 1.8 10^3/uL (1.5-5.0); LYMPH % 27.6 % (24.0-44.0); MEAN CORPUSCULAR HEMOGLOBIN 21.8 pg (27.0-33.0); MEAN CORPUSCULAR HGB CONC 28.4 g/dl (32.0-36.5); MEAN CORPUSCULAR VOLUME 76.6 fl (80.0-96.0); MONO % 14.8 % (2.0-8.0); NEUTROPHILS # 3.5 10^3/uL (1.5-8.5); NEUTROPHILS % 54.6 % (36.0-66.0); PLATELET COUNT, AUTOMATED 405 10^3/uL (150-450); RED BLOOD COUNT 4.45 10^6/uL (4.30-6.10); WHITE BLOOD COUNT 6.4 10^3/uL (4.0-10.0)
[2021-10-17 17:30] VITALS: BP 145/77
[2021-10-17 17:36] LABS: BLOOD UREA NITROGEN 7 MG/DL (7-18); CALCIUM LEVEL 8.9 MG/DL (8.5-10.1); CARBON DIOXIDE LEVEL 29 MEQ/L (21-32); CHLORIDE LEVEL 99 MEQ/L (98-107); ETHYL ALCOHOL (ETHANOL) 0.274 % (0.000-0.010); GLOMERULAR FILTRATION RATE > 60.0 (>56); GLUCOSE, FASTING 88 MG/DL (70-100); POTASSIUM SERUM 4.2 MEQ/L (3.5-5.1); SODIUM LEVEL 134 MEQ/L (136-145)
== END 2021-10-17 22:07 | disposition home or self-care (01) ==
LOC: M ED 16:44
DX: F10.129 Alcohol abuse with intoxication, unspecified (principal); F41.9 Anxiety disorder, unspecified; F32.9 Major depressive disorder, single episode, unspecified; Z48.02 Encounter for removal of sutures

== ENCOUNTER 2021-10-18 18:28 | Emergency (ER) | payer MEDICARE, MEDICAID ==
[~2021-10-18] VITALS: Ht 167.6 cm; Wt 77.3 kg
[2021-10-18] MEDS ORDERED: NS 1,000 ML IV ONE (18:35)
[2021-10-18 19:01] LABS: BASO % 0.5 % (0.0-1.0); EOS % 0.4 % (0.0-3.0); HEMATOCRIT 30.5 % (42.0-52.0); HEMOGLOBIN 8.9 g/dl (13.5-17.5); LYMPH # 1.9 10^3/uL (1.5-5.0); LYMPH % 25.3 % (24.0-44.0); MEAN CORPUSCULAR HEMOGLOBIN 21.6 pg (27.0-33.0); MEAN CORPUSCULAR HGB CONC 29.2 g/dl (32.0-36.5); MONO # 1.2 10^3/uL (0.0-0.8); MONO % 16.1 % (2.0-8.0); NEUTROPHILS # 4.2 10^3/uL (1.5-8.5); NEUTROPHILS % 57.2 % (36.0-66.0); PLATELET COUNT, AUTOMATED 375 10^3/uL (150-450); RED BLOOD COUNT 4.12 10^6/uL (4.30-6.10); WHITE BLOOD COUNT 7.4 10^3/uL (4.0-10.0)
[2021-10-18 19:30] LABS: ACETAMINOPHEN LEVEL < 2.0 UG/ML (10.0-30.0); ALBUMIN 3.7 GM/DL (3.2-5.2); ALT/SGPT 34 U/L (12-78); BILIRUBIN,DIRECT 0.2 MG/DL (0.0-0.2); BILIRUBIN,TOTAL 0.5 MG/DL (0.2-1.0); BLOOD UREA NITROGEN 9 MG/DL (7-18); CALCIUM LEVEL 8.8 MG/DL (8.5-10.1); CARBON DIOXIDE LEVEL 22 MEQ/L (21-32); CHLORIDE LEVEL 99 MEQ/L (98-107); CREATININE FOR GFR 0.92 MG/DL (0.70-1.30); ETHYL ALCOHOL (ETHANOL) 0.286 % (0.000-0.010); GLOMERULAR FILTRATION RATE > 60.0 (>56); GLUCOSE, FASTING 70 MG/DL (70-100); POTASSIUM SERUM 3.8 MEQ/L (3.5-5.1); SALICYLATE LEVEL < 1.7 MG/DL (5.0-30.0); SODIUM LEVEL 133 MEQ/L (136-145); TOTAL PROTEIN 7.2 GM/DL (6.4-8.2)
[2021-10-18 20:25] LABS: AMPHETAMINES LEVEL URINE NEGATIVE (NEGATIVE); BARBITURATES URINE NEGATIVE (NEGATIVE); BENZODIAZEPINES URINE NEGATIVE (NEGATIVE); CANNABINOIDS URINE NEGATIVE (NEGATIVE); COCAINE METABOLITE URINE NEGATIVE (NEGATIVE); METHADONE URINE NEGATIVE (NEGATIVE); OPIATES URINE NEGATIVE (NEGATIVE); PHENCYCLIDINE URINE NEGATIVE (NEGATIVE)
[2021-10-19 02:58] VITALS: BP 120/6
== END 2021-10-19 03:23 | disposition home or self-care (01) ==
LOC: M ED 18:28
DX: F10.129 Alcohol abuse with intoxication, unspecified (principal); I45.19 Other right bundle-branch block

== ENCOUNTER 2021-11-25 16:07 | Emergency (ER) | payer MEDICARE, MEDICAID ==
[~2021-11-25] VITALS: Ht 167.6 cm; Wt 77.3 kg
[2021-11-25 16:17] VITALS: BP 149/79
== END 2021-11-25 19:59 | disposition home or self-care (01) ==
LOC: EDBD 16:07 → M ED 16:07
DX: S02.40FA Zygomatic fracture, left side, initial encounter for closed fracture (principal); S00.81XA Abrasion of other part of head, initial encounter; F10.129 Alcohol abuse with intoxication, unspecified; W19.XXXA Unspecified fall, initial encounter; Y92.410 Unspecified street and highway as the place of occurrence of the external cause; Y93.9 Activity, unspecified; Y99.9 Unspecified external cause status; K04.7 Periapical abscess without sinus; M54.9 Dorsalgia, unspecified; I63.81 Other cerebral infarction due to occlusion or stenosis of small artery; R90.82 White matter disease, unspecified

== ENCOUNTER 2021-11-26 17:33 | Emergency (ER) | payer MEDICARE, MEDICAID ==
[~2021-11-26] VITALS: Ht 167.6 cm; Wt 72.7 kg
[2021-11-26] MEDS ORDERED: MULTIVITAMIN -ADULT INJECTION 10 ML, THIAMINE INJection 100 MG, FOLIC ACID 1 MG in NS 1... IV ONE (18:20)
[2021-11-26 19:03] LABS: BASO # 0.1 10^3/uL (0.0-0.2); BASO % 0.7 % (0.0-1.0); EOS % 0.3 % (0.0-3.0); HEMATOCRIT 37.2 % (42.0-52.0); HEMOGLOBIN 11.2 g/dl (13.5-17.5); LYMPH % 23.2 % (24.0-44.0); MEAN CORPUSCULAR HEMOGLOBIN 22.7 pg (27.0-33.0); MEAN CORPUSCULAR HGB CONC 30.1 g/dl (32.0-36.5); MEAN CORPUSCULAR VOLUME 75.5 fl (80.0-96.0); MONO # 0.9 10^3/uL (0.0-0.8); MONO % 10.2 % (2.0-8.0); NEUTROPHILS # 5.7 10^3/uL (1.5-8.5); NEUTROPHILS % 65.4 % (36.0-66.0); PLATELET COUNT, AUTOMATED 408 10^3/uL (150-450); RED BLOOD COUNT 4.93 10^6/uL (4.30-6.10); WHITE BLOOD COUNT 8.7 10^3/uL (4.0-10.0)
[2021-11-26 19:39] LABS: ALBUMIN 4.4 GM/DL (3.2-5.2); ALT/SGPT 42 U/L (12-78); BILIRUBIN,DIRECT 0.1 MG/DL (0.0-0.2); BILIRUBIN,TOTAL 0.4 MG/DL (0.2-1.0); BLOOD UREA NITROGEN 8 MG/DL (7-18); CALCIUM LEVEL 9.2 MG/DL (8.5-10.1); CARBON DIOXIDE LEVEL 25 MEQ/L (21-32); CHLORIDE LEVEL 104 MEQ/L (98-107); CREATININE FOR GFR 0.89 MG/DL (0.70-1.30); ETHYL ALCOHOL (ETHANOL) 0.299 % (0.000-0.010); GLOMERULAR FILTRATION RATE > 60.0 (>56); GLUCOSE, FASTING 81 MG/DL (70-100); SODIUM LEVEL 138 MEQ/L (136-145); THYROID STIMULATING HORMONE 0.993 uIU/ML (0.358-3.740); TOTAL PROTEIN 8.5 GM/DL (6.4-8.2)
[2021-11-27 01:45] VITALS: BP 115/60
== END 2021-11-27 02:20 | disposition home or self-care (01) ==
LOC: M ED 17:33
DX: F10.129 Alcohol abuse with intoxication, unspecified (principal); I45.19 Other right bundle-branch block
CPT/HCPCS: 70450; 70486; 72125; 80048; 80076; 82077; 84443; 85025; 93005; 93041; 94760; 96374; 99285; J3411

== ENCOUNTER 2021-11-27 11:56 | Emergency (ER) | payer MEDICARE, MEDICAID ==
[~2021-11-27] VITALS: Ht 167.6 cm; Wt 77.3 kg
[2021-11-27 19:52] VITALS: BP 130/71
== END 2021-11-27 19:56 | disposition home or self-care (01) ==
LOC: M ED 11:56 → EDBD 11:56 → M ED 19:56
DX: F10.129 Alcohol abuse with intoxication, unspecified (principal); F32.9 Major depressive disorder, single episode, unspecified; M54.9 Dorsalgia, unspecified

== ENCOUNTER 2021-12-09 08:04 | Observation (INO) | payer MEDICARE, MEDICAID ==
[~2021-12-09] VITALS: Ht 167.6 cm; Wt 72.4 kg
[2021-12-09] MEDS ORDERED: BOOSTRIX/ADACEL VACCINE (DIPHTH/PERTUSS/ACELL/TETANUS) 0.5ML SYR IM ONE (08:35)
[2021-12-09] MEDS: FOLIC ACID 1 MG TAB PO SCH (09:00)
[2021-12-09] MEDS ORDERED: NS 1,000 ML IV ONE (09:15)
[2021-12-09] MEDS ORDERED: DEXTROSE 50% 50 ML SYRINGE IV STA (09:15)
[2021-12-09] MEDS: D5W/0.9% SODIUM CHLORIDE 1,000 ML IV SCH ×2 (11:15→21:41)
[2021-12-09 11:43] LABS: HEMOGLOBIN 9.2 g/dl (13.5-17.5); MEAN CORPUSCULAR HEMOGLOBIN 24.2 pg (27.0-33.0); MEAN CORPUSCULAR HGB CONC 31.7 g/dl (32.0-36.5); MEAN CORPUSCULAR VOLUME 76.3 fl (80.0-96.0); PLATELET COUNT, AUTOMATED 310 10^3/uL (150-450); WHITE BLOOD COUNT 10.7 10^3/uL (4.0-10.0)
[2021-12-09 12:01] LABS: ALBUMIN 3.3 GM/DL (3.2-5.2); ALT/SGPT 37 U/L (12-78); BILIRUBIN,DIRECT 0.1 MG/DL (0.0-0.2); BILIRUBIN,TOTAL 0.4 MG/DL (0.2-1.0); BLOOD UREA NITROGEN 8 MG/DL (7-18); CALCIUM LEVEL 8.2 MG/DL (8.5-10.1); CARBON DIOXIDE LEVEL 25 MEQ/L (21-32); CHLORIDE LEVEL 94 MEQ/L (98-107); CREATININE FOR GFR 0.59 MG/DL (0.70-1.30); ETHYL ALCOHOL (ETHANOL) 0.015 % (0.000-0.010); GLOMERULAR FILTRATION RATE > 60.0 (>56); GLUCOSE, FASTING 53 MG/DL (70-100); POTASSIUM SERUM 3.7 MEQ/L (3.5-5.1); SODIUM LEVEL 128 MEQ/L (136-145); TOTAL PROTEIN 6.1 GM/DL (6.4-8.2)
[2021-12-09] MEDS ORDERED: HOME MED LIST COMPLETE! XX SCH (13:10)
[2021-12-09 13:41] LABS: AMPHETAMINES LEVEL URINE NEGATIVE (NEGATIVE); BARBITURATES URINE NEGATIVE (NEGATIVE); BENZODIAZEPINES URINE NEGATIVE (NEGATIVE); CANNABINOIDS URINE NEGATIVE (NEGATIVE); COCAINE METABOLITE URINE NEGATIVE (NEGATIVE); METHADONE URINE NEGATIVE (NEGATIVE); OPIATES URINE NEGATIVE (NEGATIVE); PHENCYCLIDINE URINE NEGATIVE (NEGATIVE)
[2021-12-09 13:52] LABS: RSV AMPLIFICATION NEGATIVE (NEGATIVE)
[2021-12-09] MEDS ORDERED: MOM 30ML SUSPENSION UDC PO PRN (14:25)
[2021-12-09] MEDS ORDERED: ACETAMINOPHEN TAB 650MG DOSE (2X325MG) PO PRN (14:25)
[2021-12-09] MEDS ORDERED: LORazepam 2 MG TAB PO PRN (14:25)
[2021-12-09] MEDS: MULTIVITAMINS/MINERALS THERAP 1 TAB PO SCH (15:38)
[2021-12-09 15:53] LABS: FERRITIN 17 NG/ML (26-388); IRON (FE) 28 UG/DL (65-175); PERCENT SATURATION 5.4 % (19.7-50.0); TOTAL IRON BINDING CAPACITY 520 UG/DL (250-450)
[2021-12-09 16:30] VITALS: BP 114/55
[2021-12-09 20:00] VITALS: BP 104/54
[2021-12-09] MEDS: THIAMINE 100 MG TAB PO SCH (20:17)
[2021-12-09 22:00] VITALS: BP_SYST 104; BP_DIAS 54; BP_DIAS 56
[2021-12-09] MEDS ORDERED: HEPARIN SOD (PORCINE) 5000UNITS/ML 1ML VIAL/SYRINGE SC SCH (22:00)
[2021-12-10] VITALS (10 sets, daily range): BP systolic 114–134; BP diastolic 54–69
[2021-12-10 06:01] LABS: HEMATOCRIT 29.3 % (42.0-52.0); HEMOGLOBIN 9.1 g/dl (13.5-17.5); MEAN CORPUSCULAR HEMOGLOBIN 24.1 pg (27.0-33.0); MEAN CORPUSCULAR HGB CONC 31.1 g/dl (32.0-36.5); MEAN CORPUSCULAR VOLUME 77.5 fl (80.0-96.0); PLATELET COUNT, AUTOMATED 292 10^3/uL (150-450); RED BLOOD COUNT 3.78 10^6/uL (4.30-6.10); WHITE BLOOD COUNT 5.9 10^3/uL (4.0-10.0)
[2021-12-10 06:38] LABS: ALT/SGPT 35 U/L (12-78); BILIRUBIN,TOTAL 0.4 MG/DL (0.2-1.0); BLOOD UREA NITROGEN 7 MG/DL (7-18); CALCIUM LEVEL 8.2 MG/DL (8.5-10.1); CARBON DIOXIDE LEVEL 28 MEQ/L (21-32); CHLORIDE LEVEL 107 MEQ/L (98-107); CREATININE FOR GFR 0.78 MG/DL (0.70-1.30); GLOMERULAR FILTRATION RATE > 60.0 (>56); GLUCOSE, FASTING 93 MG/DL (70-100); MAGNESIUM LEVEL 2.2 MG/DL (1.8-2.4); SODIUM LEVEL 137 MEQ/L (136-145); TOTAL PROTEIN 6.1 GM/DL (6.4-8.2)
[2021-12-10] MEDS: MULTIVITAMINS/MINERALS THERAP 1 TAB PO SCH (08:02)
[2021-12-10] MEDS: THIAMINE 100 MG TAB PO SCH ×2 (08:03→20:29)
[2021-12-10] MEDS: FOLIC ACID 1 MG TAB PO SCH (08:03)
[2021-12-10] MEDS: D5W/0.9% SODIUM CHLORIDE 1,000 ML IV SCH ×2 (08:03→17:12)
[2021-12-10 08:09] LABS: FOLATE 17.1 NG/ML (>5.4)
[2021-12-10] MEDS ORDERED: MULTIVITAMIN -ADULT INJECTION 10 ML, THIAMINE INJection 100 MG, FOLIC ACID 1 MG in NS 1... IV ONE (17:00)
[2021-12-11] VITALS (7 sets, daily range): BP systolic 129–140; BP diastolic 70–78
[2021-12-11] MEDS: D5W/0.9% SODIUM CHLORIDE 1,000 ML IV SCH ×2 (03:56→14:38)
[2021-12-11 05:10] LABS: HEMATOCRIT 27.3 % (42.0-52.0); HEMOGLOBIN 8.3 g/dl (13.5-17.5); MEAN CORPUSCULAR HGB CONC 30.4 g/dl (32.0-36.5); MEAN CORPUSCULAR VOLUME 78.9 fl (80.0-96.0); PLATELET COUNT, AUTOMATED 261 10^3/uL (150-450); RED BLOOD COUNT 3.46 10^6/uL (4.30-6.10); WHITE BLOOD COUNT 5.2 10^3/uL (4.0-10.0)
[2021-12-11 05:52] LABS: ALBUMIN 2.8 GM/DL (3.2-5.2); ALT/SGPT 33 U/L (12-78); BILIRUBIN,TOTAL 0.3 MG/DL (0.2-1.0); BLOOD UREA NITROGEN 6 MG/DL (7-18); CALCIUM LEVEL 8.3 MG/DL (8.5-10.1); CARBON DIOXIDE LEVEL 29 MEQ/L (21-32); CHLORIDE LEVEL 107 MEQ/L (98-107); CREATININE FOR GFR 0.73 MG/DL (0.70-1.30); GLOMERULAR FILTRATION RATE > 60.0 (>56); GLUCOSE, FASTING 94 MG/DL (70-100); SODIUM LEVEL 138 MEQ/L (136-145); TOTAL PROTEIN 5.9 GM/DL (6.4-8.2)
[2021-12-11] MEDS: FOLIC ACID 1 MG TAB PO SCH (09:05)
[2021-12-11] MEDS: THIAMINE 100 MG TAB PO SCH ×2 (09:05→20:24)
[2021-12-11] MEDS: MULTIVITAMINS/MINERALS THERAP 1 TAB PO SCH (09:06)
[2021-12-12 04:20] VITALS: BP 137/68
[2021-12-12 04:21] VITALS: BP 137/68
[2021-12-12 06:21] LABS: HEMATOCRIT 28.5 % (42.0-52.0); HEMOGLOBIN 8.7 g/dl (13.5-17.5); MEAN CORPUSCULAR HEMOGLOBIN 23.9 pg (27.0-33.0); MEAN CORPUSCULAR HGB CONC 30.5 g/dl (32.0-36.5); MEAN CORPUSCULAR VOLUME 78.3 fl (80.0-96.0); PLATELET COUNT, AUTOMATED 281 10^3/uL (150-450); RED BLOOD COUNT 3.64 10^6/uL (4.30-6.10); WHITE BLOOD COUNT 5.7 10^3/uL (4.0-10.0)
[2021-12-12 06:52] LABS: ALBUMIN 2.9 GM/DL (3.2-5.2); ALT/SGPT 34 U/L (12-78); BILIRUBIN,TOTAL 0.2 MG/DL (0.2-1.0); BLOOD UREA NITROGEN 7 MG/DL (7-18); CALCIUM LEVEL 8.9 MG/DL (8.5-10.1); CARBON DIOXIDE LEVEL 26 MEQ/L (21-32); CHLORIDE LEVEL 105 MEQ/L (98-107); CREATININE FOR GFR 0.66 MG/DL (0.70-1.30); GLOMERULAR FILTRATION RATE > 60.0 (>56); GLUCOSE, FASTING 95 MG/DL (70-100); POTASSIUM SERUM 3.9 MEQ/L (3.5-5.1); SODIUM LEVEL 138 MEQ/L (136-145); TOTAL PROTEIN 6.3 GM/DL (6.4-8.2)
[2021-12-12 07:27] VITALS: BP 134/66
[2021-12-12] MEDS: FOLIC ACID 1 MG TAB PO SCH (08:08)
[2021-12-12] MEDS: THIAMINE 100 MG TAB PO SCH (08:08)
[2021-12-12] MEDS: MULTIVITAMINS/MINERALS THERAP 1 TAB PO SCH (08:08)
[2021-12-12] MEDS ORDERED: THIA100TA PO (10:40)
[2021-12-12] MEDS ORDERED: PROT20TA11 PO (10:40)
[2021-12-12] MEDS ORDERED: FOLI1TAB11 PO (10:40)
[2021-12-12] MEDS ORDERED: VITMTA PO (10:40)
[2021-12-12] MEDS ORDERED: IRON65TA2 PO (10:40)
[2021-12-12 11:38] VITALS: BP 148/79
== END 2021-12-12 13:15 | disposition home or self-care (01) ==
LOC: M ED 08:04 → EDBD 08:04 → M ED INP 08:09 → ENRESERV 15:15 → M PCU 16:14
PROVIDERS: ADMIT Internal Medicine; ATTEND Internal Medicine
DX: F10.129 Alcohol abuse with intoxication, unspecified (principal); S01.91XA Laceration without foreign body of unspecified part of head, initial encounter; W19.XXXA Unspecified fall, initial encounter; Y92.89 Other specified places as the place of occurrence of the external cause; Y93.9 Activity, unspecified; Y99.9 Unspecified external cause status; E16.1 Other hypoglycemia; D64.9 Anemia, unspecified; F06.31 Mood disorder due to known physiological condition with depressive features; F79 Unspecified intellectual disabilities; E86.0 Dehydration; R53.83 Other fatigue; R74.01 Elevation of levels of liver transaminase levels; F17.220 Nicotine dependence, chewing tobacco, uncomplicated; Z79.899 Other long term (current) drug therapy; F41.9 Anxiety disorder, unspecified; F32.9 Major depressive disorder, single episode, unspecified; G89.29 Other chronic pain
CPT/HCPCS: 12004; 36415; 70450; 72125; 80048; 80053; 80076; 80307; 82077; 82607; 82728; 82746; 83550; 83735; 84145; 85027; 87631; 90471; 90715; 93005; 96361; 96374; 96375; 97116; 97161; 97165; 97530; 99285; G0378; J3411

== ENCOUNTER 2021-12-13 16:25 | Inpatient (IN) | payer MEDICARE, MEDICAID ==
[~2021-12-13] VITALS: Ht 177.8 cm; Wt 72.3 kg
[~2021-12-13 16:25] MED LIST changes: +IRON65TA2 PO; +PROT20TA11 PO
[2021-12-13 17:04] LABS: VENOUS BASE EXCESS -0.1 (-2.0-2.0); VENOUS HCO3 24.2 MEQ/L (23.0-27.0); VENOUS O2 SATURATION 79.6 % (60.0-80.0); VENOUS PARTIAL PRESSURE CO2 38.4 mmHg (38.0-50.0); VENOUS PARTIAL PRESSURE O2 44.8 mmHg (30.0-50.0); VENOUS PH 7.418 UNITS (7.330-7.430); VENOUS STANDARD HCO3 24.1 MEQ/L; VENOUS TOTAL CO2 25.4 MEQ/L (24.0-28.0)
[2021-12-13] MEDS ORDERED: LIDOCAINE W/EPINEPHRINE 1% 20ML VIAL SC ONE (17:10)
[2021-12-13 17:14] LABS: BASO % 0.4 % (0.0-1.0); EOS # 0.2 10^3/uL (0.0-0.5); EOS % 2.5 % (0.0-3.0); LYMPH # 1.1 10^3/uL (1.5-5.0); LYMPH % 15.9 % (24.0-44.0); MEAN CORPUSCULAR HEMOGLOBIN 24.3 pg (27.0-33.0); MEAN CORPUSCULAR HGB CONC 31.3 g/dl (32.0-36.5); MEAN CORPUSCULAR VOLUME 77.9 fl (80.0-96.0); MONO # 1.1 10^3/uL (0.0-0.8); MONO % 14.7 % (2.0-8.0); NEUTROPHILS # 4.7 10^3/uL (1.5-8.5); NEUTROPHILS % 66.2 % (36.0-66.0); PLATELET COUNT, AUTOMATED 399 10^3/uL (150-450); RED BLOOD COUNT 4.11 10^6/uL (4.30-6.10); WHITE BLOOD COUNT 7.2 10^3/uL (4.0-10.0)
[2021-12-13 17:36] LABS: OSMOLALITY SERUM 269 MOSM/KG (275-295)
[2021-12-13 17:47] LABS: ACETAMINOPHEN LEVEL < 2.0 UG/ML (10.0-30.0); ALBUMIN 3.6 GM/DL (3.2-5.2); ALT/SGPT 40 U/L (12-78); BILIRUBIN,DIRECT 0.1 MG/DL (0.0-0.2); BILIRUBIN,TOTAL 0.3 MG/DL (0.2-1.0); BLOOD UREA NITROGEN 8 MG/DL (7-18); CALCIUM LEVEL 9.1 MG/DL (8.5-10.1); CARBON DIOXIDE LEVEL 28 MEQ/L (21-32); CHLORIDE LEVEL 94 MEQ/L (98-107); CREATININE FOR GFR 0.86 MG/DL (0.70-1.30); ETHYL ALCOHOL (ETHANOL) < 0.003 % (0.000-0.010); GLOMERULAR FILTRATION RATE > 60.0 (>56); GLUCOSE, FASTING 85 MG/DL (70-100); POTASSIUM SERUM 4.1 MEQ/L (3.5-5.1); SALICYLATE LEVEL < 1.7 MG/DL (5.0-30.0); SODIUM LEVEL 129 MEQ/L (136-145)
[2021-12-13] MEDS ORDERED: ceFAZolin SOD 1 GM in D5W MINI-BAG PLUS 50 ML IV ONE (18:00)
[2021-12-13 18:50] LABS: AMPHETAMINES LEVEL URINE NEGATIVE (NEGATIVE); BARBITURATES URINE NEGATIVE (NEGATIVE); BENZODIAZEPINES URINE NEGATIVE (NEGATIVE); CANNABINOIDS URINE NEGATIVE (NEGATIVE); COCAINE METABOLITE URINE NEGATIVE (NEGATIVE); METHADONE URINE NEGATIVE (NEGATIVE); OPIATES URINE NEGATIVE (NEGATIVE); PHENCYCLIDINE URINE NEGATIVE (NEGATIVE)
[2021-12-13] MEDS ORDERED: GLUCAGON INJ 1MG VIAL SC PRN (19:50)
[2021-12-13] MEDS ORDERED: ACETAMINOPHEN TAB 650MG DOSE (2X325MG) PO PRN (19:50)
[2021-12-13] MEDS ORDERED: GLUCOSE 4GM CHEW TABLET PO PRN (19:50)
[2021-12-13] MEDS ORDERED: DEXTROSE 50% 50 ML SYRINGE IV PRN (19:50)
[2021-12-13] MEDS ORDERED: LORazepam 2 MG TAB PO PRN (19:50)
[2021-12-13] MEDS ORDERED: HOME MED LIST COMPLETE! XX SCH (20:10)
[2021-12-13 20:19] LABS: FREE T4 0.98 NG/DL (0.76-1.46)
[2021-12-13 20:27] LABS: PROLACTIN 29.2 NG/ML (2.1-17.7)
[2021-12-13] MEDS ORDERED: levETIRAcetam INJection 750 MG in D5W 100 ML IV ONE (21:00)
[2021-12-13] MEDS: CEPHALEXIN 500 MG CAP PO SCH (22:36)
[2021-12-13] MEDS ORDERED: MULTIVITAMIN -ADULT INJECTION 10 ML, THIAMINE INJection 100 MG, FOLIC ACID 1 MG in NS 1... IV ONE (23:00)
[2021-12-14] VITALS (7 sets, daily range): BP systolic 116–145; BP diastolic 59–79
[2021-12-14 00:03] LABS: INR 1.03; PROTHROMBIN TIME 13.9 SECONDS (12.7-14.5)
[2021-12-14 00:04] LABS: PARTIAL THROMBOPLASTIN TIME 34.2 SECONDS (25.9-37.0)
[2021-12-14 00:20] LABS: BLOOD UREA NITROGEN 8 MG/DL (7-18); CALCIUM LEVEL 8.7 MG/DL (8.5-10.1); CARBON DIOXIDE LEVEL 28 MEQ/L (21-32); CHLORIDE LEVEL 98 MEQ/L (98-107); CREATININE FOR GFR 0.78 MG/DL (0.70-1.30); GLOMERULAR FILTRATION RATE > 60.0 (>56); GLUCOSE, FASTING 96 MG/DL (70-100); POTASSIUM SERUM 3.8 MEQ/L (3.5-5.1); SODIUM LEVEL 130 MEQ/L (136-145)
[2021-12-14 06:50] LABS: BASO % 0.5 % (0.0-1.0); EOS # 0.2 10^3/uL (0.0-0.5); EOS % 3.3 % (0.0-3.0); HEMATOCRIT 32.2 % (42.0-52.0); LYMPH # 1.2 10^3/uL (1.5-5.0); LYMPH % 20.4 % (24.0-44.0); MEAN CORPUSCULAR HEMOGLOBIN 24.3 pg (27.0-33.0); MEAN CORPUSCULAR HGB CONC 31.1 g/dl (32.0-36.5); MEAN CORPUSCULAR VOLUME 78.2 fl (80.0-96.0); MONO # 1.1 10^3/uL (0.0-0.8); MONO % 18.7 % (2.0-8.0); NEUTROPHILS # 3.3 10^3/uL (1.5-8.5); NEUTROPHILS % 56.8 % (36.0-66.0); PLATELET COUNT, AUTOMATED 366 10^3/uL (150-450); RED BLOOD COUNT 4.12 10^6/uL (4.30-6.10); WHITE BLOOD COUNT 5.8 10^3/uL (4.0-10.0)
[2021-12-14 07:20] LABS: ALBUMIN 3.3 GM/DL (3.2-5.2); ALT/SGPT 34 U/L (12-78); BILIRUBIN,TOTAL 0.3 MG/DL (0.2-1.0); BLOOD UREA NITROGEN 6 MG/DL (7-18); CALCIUM LEVEL 9.2 MG/DL (8.5-10.1); CARBON DIOXIDE LEVEL 27 MEQ/L (21-32); CHLORIDE LEVEL 107 MEQ/L (98-107); CREATININE FOR GFR 0.63 MG/DL (0.70-1.30); GLOMERULAR FILTRATION RATE > 60.0 (>56); GLUCOSE, FASTING 89 MG/DL (70-100); SODIUM LEVEL 139 MEQ/L (136-145)
[2021-12-14] MEDS ORDERED: HEPARIN SOD (PORCINE) 5000UNITS/ML 1ML VIAL/SYRINGE SQ SCH (09:00)
[2021-12-14] MEDS: FERROUS SULFATE 325MG TAB PO SCH (09:20)
[2021-12-14] MEDS: MULTIVITAMINS/MINERALS THERAP 1 TAB PO SCH (09:20)
[2021-12-14] MEDS: levETIRAcetam INJection 750 MG in D5W 100 ML IV SCH ×2 (09:21→20:32)
[2021-12-14] MEDS: THIAMINE 100 MG TAB PO SCH (09:21)
[2021-12-14] MEDS: FOLIC ACID 1 MG TAB PO SCH (09:21)
[2021-12-14] MEDS: PANTOPRAZOLE 40MG VIAL IV SCH (09:21)
[2021-12-14] MEDS: CEPHALEXIN 500 MG CAP PO SCH ×2 (09:21→20:32)
[2021-12-14] MEDS ORDERED: NS 1,000 ML IV SCH (10:00)
[2021-12-14] MEDS: HEPARIN SOD (PORCINE) 5000UNITS/ML 1ML VIAL/SYRINGE SQ SCH ×2 (14:51→21:26)
[2021-12-15] VITALS: BP 121/65
[2021-12-15 04:00] VITALS: BP_SYST 123; BP_SYST 129; BP_DIAS 66; BP_DIAS 72
[2021-12-15] MEDS: HEPARIN SOD (PORCINE) 5000UNITS/ML 1ML VIAL/SYRINGE SQ SCH (05:39)
[2021-12-15 07:56] VITALS: BP 125/73
[2021-12-15] MEDS: CEPHALEXIN 500 MG CAP PO SCH (09:50)
[2021-12-15] MEDS: FOLIC ACID 1 MG TAB PO SCH (09:50)
[2021-12-15] MEDS: THIAMINE 100 MG TAB PO SCH (09:50)
[2021-12-15] MEDS: PANTOPRAZOLE 40MG VIAL IV SCH (09:50)
[2021-12-15] MEDS: MULTIVITAMINS/MINERALS THERAP 1 TAB PO SCH (09:50)
[2021-12-15] MEDS: levETIRAcetam INJection 750 MG in D5W 100 ML IV SCH (09:50)
[2021-12-15] MEDS: FERROUS SULFATE 325MG TAB PO SCH (09:50)
[2021-12-15] MEDS ORDERED: VITMTA PO (12:07)
[2021-12-15] MEDS ORDERED: FOLI1TAB11 PO (12:07)
[2021-12-15] MEDS ORDERED: CEPH500C PO (12:07)
[2021-12-15] MEDS ORDERED: THIA100TA PO (12:07)
[2021-12-15] MEDS ORDERED: KEPP250T5 PO (12:07)
[2021-12-15 12:18] VITALS: BP 121/75
[2021-12-15] MEDS ORDERED: levETIRAcetam 250MG TABLET (KEPPRA) PO SCH (21:00)
== END 2021-12-15 13:30 | disposition home or self-care (01) | DRG 897 ==
LOC: M ED 16:25 → EDBD 16:25 → M ED INP 16:26 → M PCU 23:23 → OBSVTOIN 12-14 11:46
PROVIDERS: ADMIT Internal Medicine; ATTEND Internal Medicine
DX: F10.139 Alcohol abuse with withdrawal, unspecified (principal); E87.1 Hypo-osmolality and hyponatremia; E87.2 Acidosis; I45.10 Unspecified right bundle-branch block; F32.A Depression, unspecified; F41.9 Anxiety disorder, unspecified; Z91.51 Personal history of suicidal behavior; M54.9 Dorsalgia, unspecified; F17.290 Nicotine dependence, other tobacco product, uncomplicated; F64.9 Gender identity disorder, unspecified; S01.91XA Laceration without foreign body of unspecified part of head, initial encounter; E07.9 Disorder of thyroid, unspecified

== ENCOUNTER 2022-06-04 20:46 | Emergency (ER) | payer MEDICARE, MEDICAID ==
[~2022-06-04 20:46] MED LIST changes: +CEPH500C PO; +KEPP250T5 PO
[2022-06-04 22:53] LABS: HEMATOCRIT 33.3 % (42.0-52.0); HEMOGLOBIN 10.9 g/dl (13.5-17.5); MEAN CORPUSCULAR HEMOGLOBIN 28.1 pg (27.0-33.0); MEAN CORPUSCULAR HGB CONC 32.7 g/dl (32.0-36.5); MEAN CORPUSCULAR VOLUME 85.8 fl (80.0-96.0); PLATELET COUNT, AUTOMATED 251 10^3/uL (150-450); RED BLOOD COUNT 3.88 10^6/uL (4.30-6.10); WHITE BLOOD COUNT 6.3 10^3/uL (4.0-10.0)
[2022-06-04 23:49] LABS: ACETAMINOPHEN LEVEL < 2.0 UG/ML (10.0-30.0); ALBUMIN 3.6 GM/DL (3.2-5.2); ALT/SGPT 21 U/L (12-78); BILIRUBIN,DIRECT 0.1 MG/DL (0.0-0.2); BILIRUBIN,TOTAL 0.2 MG/DL (0.2-1.0); BLOOD UREA NITROGEN 6 MG/DL (7-18); CALCIUM LEVEL 8.3 MG/DL (8.5-10.1); CARBON DIOXIDE LEVEL 24 MEQ/L (21-32); CHLORIDE LEVEL 105 MEQ/L (98-107); CREATININE FOR GFR 0.77 MG/DL (0.70-1.30); ETHYL ALCOHOL (ETHANOL) 0.218 % (0.000-0.010); GLOMERULAR FILTRATION RATE > 60.0 (>56); GLUCOSE, FASTING 83 MG/DL (70-100); POTASSIUM SERUM 3.8 MEQ/L (3.5-5.1); SALICYLATE LEVEL < 1.7 MG/DL (5.0-30.0); SODIUM LEVEL 136 MEQ/L (136-145); TOTAL PROTEIN 6.7 GM/DL (6.4-8.2)
[2022-06-05 05:06] VITALS: BP 118/71
== END 2022-06-05 05:11 | disposition home or self-care (01) ==
LOC: M ED 22:22
DX: F10.120 Alcohol abuse with intoxication, uncomplicated (principal)

== ENCOUNTER 2022-06-05 10:08 | Emergency (ER) | payer MEDICARE, MEDICAID ==
[~2022-06-05] VITALS: Ht 167.6 cm; Wt 69.4 kg
[2022-06-05 13:54] VITALS: BP 130/68
== END 2022-06-05 13:57 | disposition home or self-care (01) ==
LOC: EDBD 10:08 → M ED 10:08
DX: F10.120 Alcohol abuse with intoxication, uncomplicated (principal); F17.200 Nicotine dependence, unspecified, uncomplicated; G31.9 Degenerative disease of nervous system, unspecified

== ENCOUNTER 2023-02-24 20:58 | Emergency (ER) | payer MEDICARE, MEDICAID ==
[2023-02-24 21:27] LABS: BASO # 0.1 10^3/uL (0.0-0.2); BASO % 0.8 % (0.0-1.0); EOS # 0.1 10^3/uL (0.0-0.5); EOS % 1.7 % (0.0-3.0); HEMATOCRIT 38.5 % (42.0-52.0); HEMOGLOBIN 12.7 g/dl (13.5-17.5); LYMPH # 2.7 10^3/uL (1.5-5.0); LYMPH % 35.6 % (24.0-44.0); MEAN CORPUSCULAR HEMOGLOBIN 30.2 pg (27.0-33.0); MEAN CORPUSCULAR VOLUME 91.4 fl (80.0-96.0); MONO # 0.7 10^3/uL (0.0-0.8); MONO % 9.2 % (2.0-8.0); NEUTROPHILS # 3.9 10^3/uL (1.5-8.5); NEUTROPHILS % 51.9 % (36.0-66.0); PLATELET COUNT, AUTOMATED 422 10^3/uL (150-450); RED BLOOD COUNT 4.21 10^6/uL (4.30-6.10); WHITE BLOOD COUNT 7.5 10^3/uL (4.0-10.0)
[2023-02-24 21:45] LABS: SALICYLATE LEVEL < 3.0 MG/DL (<30)
[2023-02-24 21:46] LABS: ACETAMINOPHEN LEVEL < 2.0 UG/ML (10.0-20.0); ALBUMIN 3.4 G/DL (3.2-5.2); ALKALINE PHOSPHATASE 80 U/L (46-116); ALT/SGPT < 9 U/L (7.0-40); AST/SGOT 20 U/L (<34); BILIRUBIN,DIRECT 0.1 MG/DL (<0.4); BILIRUBIN,TOTAL 0.4 MG/DL (0.3-1.2); BLOOD UREA NITROGEN 6 MG/DL (9-23); CALCIUM LEVEL 8.3 MG/DL (8.5-10.1); CARBON DIOXIDE LEVEL 26 MMOL/L (20-31); CHLORIDE LEVEL 98 MMOL/L (98-107); CREATININE FOR GFR 0.85 MG/DL (0.70-1.30); GLOMERULAR FILTRATION RATE > 60.0 (>56); GLUCOSE, FASTING 85 MG/DL (60-100); POTASSIUM SERUM 3.7 MMOL/L (3.5-5.1); SODIUM LEVEL 134 MMOL/L (136-145); TOTAL PROTEIN 6.9 G/DL (5.7-8.2)
[2023-02-24 21:47] LABS: THYROID STIMULATING HORMONE 1.621 uIU/ML (0.55-4.78)
[2023-02-24 22:13] LABS: ETHYL ALCOHOL (ETHANOL) 0.317 % (0.000-0.010)
[2023-02-24] MEDS ORDERED: LIDOCAINE W/EPINEPHRINE 1% 20ML VIAL SC ONE (22:50)
[2023-02-25] MEDS ORDERED: NS 1,000 ML IV ONE (05:35)
[2023-02-25 13:53] VITALS: BP 129/67; TEMP 99.5; O2SAT 97
== END 2023-02-25 13:56 | disposition home or self-care (01) ==
LOC: EDBD 20:58 → M ED 20:58
DX: F10.120 Alcohol abuse with intoxication, uncomplicated (principal); S09.90XA Unspecified injury of head, initial encounter; W19.XXXA Unspecified fall, initial encounter; Y92.410 Unspecified street and highway as the place of occurrence of the external cause

== ENCOUNTER 2023-03-20 02:21 | Emergency (ER) | payer MEDICARE, MEDICAID ==
[~2023-03-20] VITALS: Ht 167.6 cm; Wt 68.2 kg
[2023-03-20 03:03] VITALS: TEMP 97.9
[2023-03-20 06:00] VITALS: BP 116/65; O2SAT 95
== END 2023-03-20 06:18 | disposition home or self-care (01) ==
LOC: M ED 02:21
DX: F10.129 Alcohol abuse with intoxication, unspecified (principal); S00.81XA Abrasion of other part of head, initial encounter; W19.XXXA Unspecified fall, initial encounter

== ENCOUNTER 2023-11-07 02:15 | Emergency (ER) | payer MEDICARE, MEDICAID ==
[~2023-11-07] VITALS: Ht 172.7 cm; Wt 69.7 kg
[2023-11-07 02:18] VITALS: TEMP 98
[2023-11-07 02:43] LABS: VENOUS BASE EXCESS -1.3 (-2.0-2.0); VENOUS HCO3 25.1 MMOL/L (23.0-27.0); VENOUS O2 SATURATION 93.2 % (60.0-80.0); VENOUS PARTIAL PRESSURE CO2 48.7 mmHg (38.0-50.0); VENOUS PARTIAL PRESSURE O2 77.7 mmHg (30.0-50.0); VENOUS STANDARD HCO3 23.3 MMOL/L; VENOUS TOTAL CO2 26.6 MMOL/L (24.0-28.0)
[2023-11-07 02:55] LABS: BASO # 0.1 10^3/uL (0.0-0.2); BASO % 1.1 % (0.0-1.0); EOS # 0.2 10^3/uL (0.0-0.5); EOS % 2.5 % (0.0-3.0); HEMATOCRIT 38.9 % (42.0-52.0); HEMOGLOBIN 13.1 g/dl (13.5-17.5); LYMPH # 3.4 10^3/uL (1.5-5.0); LYMPH % 47.3 % (24.0-44.0); MEAN CORPUSCULAR HGB CONC 33.7 g/dl (32.0-36.5); MEAN CORPUSCULAR VOLUME 95.1 fl (80.0-96.0); MONO # 0.7 10^3/uL (0.0-0.8); MONO % 10.3 % (2.0-8.0); NEUTROPHILS # 2.7 10^3/uL (1.5-8.5); NEUTROPHILS % 38.2 % (36.0-66.0); PLATELET COUNT, AUTOMATED 279 10^3/uL (150-450); RED BLOOD COUNT 4.09 10^6/uL (4.30-6.10); WHITE BLOOD COUNT 7.1 10^3/uL (4.0-10.0)
[2023-11-07] MEDS: NS 1,000 ML IV SCH (03:10)
[2023-11-07 03:13] LABS: CPK CREATINE PHOSPHOKINASE 64 U/L (46-171)
[2023-11-07 03:14] LABS: ALBUMIN 3.4 G/DL (3.2-5.2); ALKALINE PHOSPHATASE 70 U/L (46-116); ALT/SGPT 19 U/L (7.0-40); AST/SGOT 22 U/L (<34); BILIRUBIN,DIRECT 0.1 MG/DL (<0.4); BILIRUBIN,TOTAL 0.3 MG/DL (0.3-1.2); BLOOD UREA NITROGEN 7 MG/DL (9-23); CALCIUM LEVEL 8.2 MG/DL (8.5-10.1); CARBON DIOXIDE LEVEL 26 MMOL/L (20-31); CHLORIDE LEVEL 107 MMOL/L (98-107); CREATININE FOR GFR 0.79 MG/DL (0.70-1.30); GLOMERULAR FILTRATION RATE > 60.0 (>56); GLUCOSE, FASTING 88 MG/DL (60-100); SALICYLATE LEVEL < 3.0 MG/DL (<30); SODIUM LEVEL 142 MMOL/L (136-145); TOTAL PROTEIN 6.6 G/DL (5.7-8.2)
[2023-11-07 03:16] LABS: THYROID STIMULATING HORMONE 2.626 uIU/ML (0.55-4.78)
[2023-11-07 03:22] LABS: AMPHETAMINES LEVEL URINE NEGATIVE (NEGATIVE); BARBITURATES URINE NEGATIVE (NEGATIVE); BENZODIAZEPINES URINE NEGATIVE (NEGATIVE); CANNABINOIDS URINE NEGATIVE (NEGATIVE); COCAINE METABOLITE URINE NEGATIVE (NEGATIVE); METHADONE URINE NEGATIVE (NEGATIVE); OPIATES URINE NEGATIVE (NEGATIVE); PHENCYCLIDINE URINE NEGATIVE (NEGATIVE)
[2023-11-07 03:38] LABS: ETHYL ALCOHOL (ETHANOL) 0.377 % (0.000-0.010)
[2023-11-07] MEDS ORDERED: LORazepam 2 MG TAB PO PRN (07:20)
[2023-11-07 09:00] VITALS: BP 97/61; O2SAT 97
[2023-11-07] MEDS ORDERED: THIAMINE 100 MG TAB PO SCH (09:00)
[2023-11-07] MEDS ORDERED: FOLIC ACID 1MG TAB PO SCH (09:00)
[2023-11-07] MEDS ORDERED: MULTIVITAMINS/MINERALS THERAP 1 TAB PO SCH (09:00)
== END 2023-11-07 12:25 | disposition home or self-care (01) ==
LOC: M ED 02:15 → EDBD 02:15 → M ED 12:25
DX: F10.129 Alcohol abuse with intoxication, unspecified (principal); R60.0 Localized edema

== ENCOUNTER 2024-01-18 17:44 | Emergency (ER) | payer MEDICARE, MEDICAID ==
[2024-01-18 18:29] VITALS: O2SAT 92
[2024-01-18 18:30] VITALS: BP 101/61
[2024-01-18] MEDS ORDERED: BACITRACIN OINTMENT 30GM TUBE TOP PRN (20:10)
[2024-01-18] MEDS ORDERED: BACI500O8 TOP (20:25)
== END 2024-01-18 20:50 | disposition home or self-care (01) ==
LOC: EDBD 17:44 → M ED 17:44
DX: S00.81XA Abrasion of other part of head, initial encounter (principal); W18.30XA Fall on same level, unspecified, initial encounter; Y92.009 Unspecified place in unspecified non-institutional (private) residence as the place of occurrence of the external cause; Y93.9 Activity, unspecified; Y99.9 Unspecified external cause status; F10.10 Alcohol abuse, uncomplicated; F17.200 Nicotine dependence, unspecified, uncomplicated

== ENCOUNTER 2024-02-23 00:03 | Emergency (ER) | payer MEDICARE, MEDICAID ==
[~2024-02-23] VITALS: Ht 167.6 cm; Wt 68.2 kg
[~2024-02-23 00:03] MED LIST changes: +BACI500O8 TOP
[2024-02-23 01:39] LABS: ETHYL ALCOHOL (ETHANOL) 0.285 % (0.000-0.010)
[2024-02-23] MEDS: NS 2,050 ML in IV 1 EA IV ONE (03:07)
[2024-02-23] MEDS: cefTRIAXone SOD 2 GM in D5W MINI-BAG PLUS 50 ML IV ONE (03:07)
[2024-02-23 03:13] LABS: BASO % 0.4 % (0.0-1.0); EOS # 0.2 10^3/uL (0.0-0.5); EOS % 1.6 % (0.0-3.0); HEMATOCRIT 35.8 % (42.0-52.0); HEMOGLOBIN 12.1 g/dl (13.5-17.5); LYMPH # 1.5 10^3/uL (1.5-5.0); LYMPH % 14.9 % (24.0-44.0); MEAN CORPUSCULAR HGB CONC 33.8 g/dl (32.0-36.5); MEAN CORPUSCULAR VOLUME 97.5 fl (80.0-96.0); MONO # 1.2 10^3/uL (0.0-0.8); MONO % 12.5 % (2.0-8.0); NEUTROPHILS # 6.9 10^3/uL (1.5-8.5); NEUTROPHILS % 70.3 % (36.0-66.0); PLATELET COUNT, AUTOMATED 231 10^3/uL (150-450); RED BLOOD COUNT 3.67 10^6/uL (4.30-6.10); WHITE BLOOD COUNT 9.8 10^3/uL (4.0-10.0)
[2024-02-23 03:17] LABS: PROCALCITONIN 0.08 ng/ml
[2024-02-23 03:53] LABS: BLOOD UREA NITROGEN 7 MG/DL (9-23); CALCIUM LEVEL 8.7 MG/DL (8.5-10.1); CARBON DIOXIDE LEVEL 25 MMOL/L (20-31); CHLORIDE LEVEL 104 MMOL/L (98-107); CREATININE FOR GFR 0.65 MG/DL (0.70-1.30); GLOMERULAR FILTRATION RATE > 60.0 (>56); GLUCOSE, FASTING 78 MG/DL (60-100); POTASSIUM SERUM 4.7 MMOL/L (3.5-5.1); SODIUM LEVEL 140 MMOL/L (136-145)
[2024-02-23 04:48] VITALS: TEMP 98.9
[2024-02-23] MEDS ORDERED: CEPH500C PO (06:27)
[2024-02-23 06:30] VITALS: BP 112/57; O2SAT 98
[2024-02-27] MEDS ORDERED: BACT800T5 PO (10:51)
== END 2024-02-23 06:54 | disposition home or self-care (01) ==
LOC: M ED 00:03 → EEVIPCON 00:03 → M ED 06:54
DX: F10.129 Alcohol abuse with intoxication, unspecified (principal); S01.01XA Laceration without foreign body of scalp, initial encounter; L08.9 Local infection of the skin and subcutaneous tissue, unspecified; W19.XXXA Unspecified fall, initial encounter; Y92.009 Unspecified place in unspecified non-institutional (private) residence as the place of occurrence of the external cause; Y93.9 Activity, unspecified; Y99.9 Unspecified external cause status; F17.200 Nicotine dependence, unspecified, uncomplicated
CPT/HCPCS: 70450; 70486; 72125; 80048; 82077; 83605; 84145; 85025; 86140; 87040; 87070; 87077; 87186; 96365; 96366; 99285; J0696

== ENCOUNTER 2024-03-25 13:40 | Emergency (ER) | payer MEDICARE, MEDICAID ==
[~2024-03-25] VITALS: Ht 167.6 cm; Wt 72.3 kg
[~2024-03-25 13:40] MED LIST changes: +BACT800T5 PO
[2024-03-25 13:47] VITALS: TEMP 98.2
[2024-03-25 15:06] LABS: BASO % 0.8 % (0.0-1.0); EOS # 0.2 10^3/uL (0.0-0.5); EOS % 3.6 % (0.0-3.0); HEMATOCRIT 28.9 % (42.0-52.0); HEMOGLOBIN 9.5 g/dl (13.5-17.5); LYMPH # 1.6 10^3/uL (1.5-5.0); LYMPH % 32.1 % (24.0-44.0); MEAN CORPUSCULAR HEMOGLOBIN 31.1 pg (27.0-33.0); MEAN CORPUSCULAR HGB CONC 32.9 g/dl (32.0-36.5); MEAN CORPUSCULAR VOLUME 94.8 fl (80.0-96.0); MONO # 0.7 10^3/uL (0.0-0.8); MONO % 12.9 % (2.0-8.0); NEUTROPHILS # 2.5 10^3/uL (1.5-8.5); NEUTROPHILS % 50.2 % (36.0-66.0); PLATELET COUNT, AUTOMATED 227 10^3/uL (150-450); RED BLOOD COUNT 3.05 10^6/uL (4.30-6.10)
[2024-03-25] MEDS: MULTIVITAMIN -ADULT INJECTION 10 ML, THIAMINE INJection 100 MG, FOLIC ACID 1 MG in NS 1... IV ONE (15:08)
[2024-03-25 15:28] LABS: ETHYL ALCOHOL (ETHANOL) 0.243 % (0.000-0.010)
[2024-03-25 15:29] LABS: ALBUMIN 3.3 G/DL (3.2-5.2); ALKALINE PHOSPHATASE 63 U/L (46-116); ALT/SGPT 32 U/L (7.0-40); AST/SGOT 31 U/L (<34); BILIRUBIN,DIRECT 0.1 MG/DL (<0.4); BILIRUBIN,TOTAL 0.3 MG/DL (0.3-1.2); BLOOD UREA NITROGEN 6 MG/DL (9-23); CALCIUM LEVEL 8.2 MG/DL (8.5-10.1); CARBON DIOXIDE LEVEL 24 MMOL/L (20-31); CHLORIDE LEVEL 108 MMOL/L (98-107); CREATININE FOR GFR 0.67 MG/DL (0.70-1.30); GLOMERULAR FILTRATION RATE > 60.0 (>56); GLUCOSE, FASTING 83 MG/DL (60-100); POTASSIUM SERUM 3.5 MMOL/L (3.5-5.1); SALICYLATE LEVEL < 3.0 MG/DL (<30); SODIUM LEVEL 141 MMOL/L (136-145); TOTAL PROTEIN 6.2 G/DL (5.7-8.2)
[2024-03-25 15:32] LABS: THYROID STIMULATING HORMONE 0.925 uIU/ML (0.55-4.78)
[2024-03-25 15:39] LABS: AMPHETAMINES LEVEL URINE NEGATIVE (NEGATIVE); BARBITURATES URINE NEGATIVE (NEGATIVE); BENZODIAZEPINES URINE NEGATIVE (NEGATIVE); CANNABINOIDS URINE NEGATIVE (NEGATIVE); COCAINE METABOLITE URINE NEGATIVE (NEGATIVE); METHADONE URINE NEGATIVE (NEGATIVE); OPIATES URINE NEGATIVE (NEGATIVE); PHENCYCLIDINE URINE NEGATIVE (NEGATIVE)
[2024-03-25 18:45] VITALS: O2SAT 99
[2024-03-25] MEDS: NS 1,000 ML IV ONE (19:45)
[2024-03-25 20:17] VITALS: BP 111/66
== END 2024-03-25 22:50 | disposition home or self-care (01) ==
LOC: EDBD 13:40 → M ED 13:40
DX: S70.01XA Contusion of right hip, initial encounter (principal); F10.129 Alcohol abuse with intoxication, unspecified; W19.XXXA Unspecified fall, initial encounter; Y92.410 Unspecified street and highway as the place of occurrence of the external cause; Y93.9 Activity, unspecified; Y99.9 Unspecified external cause status; F41.9 Anxiety disorder, unspecified; F32.A Depression, unspecified; Z79.899 Other long term (current) drug therapy
CPT/HCPCS: 70450; 71045; 72125; 72170; 73502; 73552; 73700; 80048; 80076; 80143; 80307; 82077; 84443; 85025; 87635; 93005; 93041; 96361; 96365; 96366; 99285; J3411

== ENCOUNTER 2024-03-27 11:06 | Emergency (ER) | payer MEDICARE, MEDICAID ==
[2024-03-27 12:21] VITALS: BP 118/59; TEMP 97.6; O2SAT 98
[2024-03-27 13:18] LABS: BASO % 0.9 % (0.0-1.0); EOS # 0.1 10^3/uL (0.0-0.5); EOS % 2.7 % (0.0-3.0); HEMATOCRIT 33.2 % (42.0-52.0); HEMOGLOBIN 10.8 g/dl (13.5-17.5); LYMPH # 1.3 10^3/uL (1.5-5.0); LYMPH % 28.3 % (24.0-44.0); MEAN CORPUSCULAR HEMOGLOBIN 30.5 pg (27.0-33.0); MEAN CORPUSCULAR HGB CONC 32.5 g/dl (32.0-36.5); MEAN CORPUSCULAR VOLUME 93.8 fl (80.0-96.0); MONO # 0.6 10^3/uL (0.0-0.8); MONO % 12.4 % (2.0-8.0); NEUTROPHILS # 2.5 10^3/uL (1.5-8.5); NEUTROPHILS % 55.5 % (36.0-66.0); PLATELET COUNT, AUTOMATED 253 10^3/uL (150-450); RED BLOOD COUNT 3.54 10^6/uL (4.30-6.10); WHITE BLOOD COUNT 4.5 10^3/uL (4.0-10.0)
[2024-03-27 13:41] LABS: BLOOD UREA NITROGEN 6 MG/DL (9-23); CALCIUM LEVEL 8.4 MG/DL (8.5-10.1); CARBON DIOXIDE LEVEL 24 MMOL/L (20-31); CHLORIDE LEVEL 108 MMOL/L (98-107); CREATININE FOR GFR 0.66 MG/DL (0.70-1.30); GLOMERULAR FILTRATION RATE > 60.0 (>56); GLUCOSE, FASTING 73 MG/DL (60-100); POTASSIUM SERUM 3.8 MMOL/L (3.5-5.1); SALICYLATE LEVEL < 3.0 MG/DL (<30); SODIUM LEVEL 143 MMOL/L (136-145)
[2024-03-27 13:49] LABS: ETHYL ALCOHOL (ETHANOL) 0.298 % (0.000-0.010)
[2024-03-27 13:50] LABS: AMPHETAMINES LEVEL URINE NEGATIVE (NEGATIVE); BARBITURATES URINE NEGATIVE (NEGATIVE)
[2024-03-27 13:51] LABS: BENZODIAZEPINES URINE NEGATIVE (NEGATIVE); CANNABINOIDS URINE NEGATIVE (NEGATIVE); COCAINE METABOLITE URINE NEGATIVE (NEGATIVE); METHADONE URINE NEGATIVE (NEGATIVE); OPIATES URINE NEGATIVE (NEGATIVE); PHENCYCLIDINE URINE NEGATIVE (NEGATIVE)
== END 2024-03-27 15:08 | disposition home or self-care (01) ==
LOC: M ED 11:06 → EDBD 11:06 → M ED 15:08
DX: F10.129 Alcohol abuse with intoxication, unspecified (principal)

== ENCOUNTER 2024-03-27 22:41 | Emergency (ER) | payer MEDICARE, MEDICAID ==
[~2024-03-27] VITALS: Ht 170.2 cm; Wt 68.2 kg
[2024-03-27 22:54] VITALS: TEMP 98.2
[2024-03-27 23:14] LABS: HEMATOCRIT 37.2 % (42.0-52.0); HEMOGLOBIN 12.1 g/dl (13.5-17.5); MEAN CORPUSCULAR HEMOGLOBIN 30.5 pg (27.0-33.0); MEAN CORPUSCULAR HGB CONC 32.5 g/dl (32.0-36.5); MEAN CORPUSCULAR VOLUME 93.7 fl (80.0-96.0); PLATELET COUNT, AUTOMATED 314 10^3/uL (150-450); RED BLOOD COUNT 3.97 10^6/uL (4.30-6.10); WHITE BLOOD COUNT 5.9 10^3/uL (4.0-10.0)
[2024-03-27 23:34] LABS: SALICYLATE LEVEL < 3.0 MG/DL (<30)
[2024-03-28 00:16] LABS: ALBUMIN 4.2 G/DL (3.2-5.2); ALKALINE PHOSPHATASE 94 U/L (46-116); ALT/SGPT 36 U/L (7.0-40); AST/SGOT 41 U/L (<34); BILIRUBIN,DIRECT 0.1 MG/DL (<0.4); BILIRUBIN,TOTAL 0.4 MG/DL (0.3-1.2); BLOOD UREA NITROGEN 7 MG/DL (9-23); CALCIUM LEVEL 9.5 MG/DL (8.5-10.1); CARBON DIOXIDE LEVEL 26 MMOL/L (20-31); CHLORIDE LEVEL 107 MMOL/L (98-107); CREATININE FOR GFR 0.77 MG/DL (0.70-1.30); GLOMERULAR FILTRATION RATE > 60.0 (>56); GLUCOSE, FASTING 84 MG/DL (60-100); POTASSIUM SERUM 3.9 MMOL/L (3.5-5.1); SODIUM LEVEL 142 MMOL/L (136-145); THYROID STIMULATING HORMONE 2.807 uIU/ML (0.55-4.78); TOTAL PROTEIN 7.7 G/DL (5.7-8.2)
[2024-03-28 06:05] VITALS: O2SAT 96
[2024-03-28] MEDS ORDERED: LORazepam 2 MG TAB PO PRN (07:20)
[2024-03-28] MEDS: FOLIC ACID 1MG TAB PO SCH (07:33)
[2024-03-28] MEDS: MULTIVITAMINS/MINERALS THERAP 1 TAB PO SCH (07:33)
[2024-03-28] MEDS: THIAMINE 100 MG TAB PO SCH (07:33)
[2024-03-28 08:07] LABS: AMPHETAMINES LEVEL URINE NEGATIVE (NEGATIVE)
[2024-03-28 08:08] LABS: BARBITURATES URINE NEGATIVE (NEGATIVE); BENZODIAZEPINES URINE NEGATIVE (NEGATIVE); CANNABINOIDS URINE NEGATIVE (NEGATIVE); COCAINE METABOLITE URINE NEGATIVE (NEGATIVE); METHADONE URINE NEGATIVE (NEGATIVE); OPIATES URINE NEGATIVE (NEGATIVE); PHENCYCLIDINE URINE NEGATIVE (NEGATIVE)
[2024-03-28] MEDS ORDERED: HOME MED LIST COMPLETE! XX SCH (09:25)
[2024-03-28 10:25] VITALS: BP 129/74
== END 2024-03-28 13:19 | disposition home or self-care (01) ==
LOC: M ED 22:41
DX: F10.14 Alcohol abuse with alcohol-induced mood disorder (principal); F10.129 Alcohol abuse with intoxication, unspecified

== ENCOUNTER 2024-04-08 12:52 | Emergency (ER) | payer MEDICARE, MEDICAID ==
[~2024-04-08] VITALS: Ht 167.6 cm; Wt 77.3 kg
[2024-04-08 13:44] LABS: BASO % 0.9 % (0.0-1.0); EOS # 0.2 10^3/uL (0.0-0.5); EOS % 4.1 % (0.0-3.0); HEMATOCRIT 33.5 % (42.0-52.0); HEMOGLOBIN 10.7 g/dl (13.5-17.5); LYMPH # 1.7 10^3/uL (1.5-5.0); LYMPH % 38.4 % (24.0-44.0); MEAN CORPUSCULAR HEMOGLOBIN 29.7 pg (27.0-33.0); MEAN CORPUSCULAR HGB CONC 31.9 g/dl (32.0-36.5); MEAN CORPUSCULAR VOLUME 93.1 fl (80.0-96.0); MONO # 0.7 10^3/uL (0.0-0.8); MONO % 15.1 % (2.0-8.0); NEUTROPHILS # 1.8 10^3/uL (1.5-8.5); PLATELET COUNT, AUTOMATED 253 10^3/uL (150-450); WHITE BLOOD COUNT 4.4 10^3/uL (4.0-10.0)
[2024-04-08 14:17] LABS: ETHYL ALCOHOL (ETHANOL) 0.292 % (0.000-0.010)
[2024-04-08 14:19] LABS: SALICYLATE LEVEL < 3.0 MG/DL (<30)
[2024-04-08 14:22] LABS: THYROID STIMULATING HORMONE 0.993 uIU/ML (0.55-4.78)
[2024-04-08 14:27] LABS: ALBUMIN 3.5 G/DL (3.2-5.2); ALKALINE PHOSPHATASE 69 U/L (46-116); ALT/SGPT 30 U/L (7.0-40); AMPHETAMINES LEVEL URINE NEGATIVE (NEGATIVE); AST/SGOT 40 U/L (<34); BARBITURATES URINE NEGATIVE (NEGATIVE); BENZODIAZEPINES URINE NEGATIVE (NEGATIVE); BILIRUBIN,DIRECT < 0.1 MG/DL (<0.4); BILIRUBIN,TOTAL 0.3 MG/DL (0.3-1.2); BLOOD UREA NITROGEN 5 MG/DL (9-23); CALCIUM LEVEL 8.4 MG/DL (8.5-10.1); CANNABINOIDS URINE NEGATIVE (NEGATIVE); CARBON DIOXIDE LEVEL 27 MMOL/L (20-31); CHLORIDE LEVEL 110 MMOL/L (98-107); COCAINE METABOLITE URINE NEGATIVE (NEGATIVE); CPK CREATINE PHOSPHOKINASE 89 U/L (46-171); GLOMERULAR FILTRATION RATE > 60.0 (>56); GLUCOSE, FASTING 84 MG/DL (60-100); METHADONE URINE NEGATIVE (NEGATIVE); OPIATES URINE NEGATIVE (NEGATIVE); PHENCYCLIDINE URINE NEGATIVE (NEGATIVE); POTASSIUM SERUM 4.2 MMOL/L (3.5-5.1); SODIUM LEVEL 143 MMOL/L (136-145)
[2024-04-08 18:41] VITALS: BP 148/76; TEMP 97.9; O2SAT 100
== END 2024-04-08 19:00 | disposition home or self-care (01) ==
LOC: M ED 12:52 → EDBD 12:52 → M ED 19:00
DX: F10.129 Alcohol abuse with intoxication, unspecified (principal); F32.A Depression, unspecified; F41.9 Anxiety disorder, unspecified; K76.9 Liver disease, unspecified

== ENCOUNTER 2024-04-10 14:22 | Emergency (ER) | payer MEDICARE, MEDICAID ==
[2024-04-10 14:39] VITALS: BP 108/65; TEMP 98.3
[2024-04-10 14:56] LABS: BASO % 0.6 % (0.0-1.0); EOS # 0.1 10^3/uL (0.0-0.5); EOS % 1.7 % (0.0-3.0); HEMATOCRIT 37.5 % (42.0-52.0); HEMOGLOBIN 11.9 g/dl (13.5-17.5); LYMPH # 2.1 10^3/uL (1.5-5.0); LYMPH % 32.7 % (24.0-44.0); MEAN CORPUSCULAR HGB CONC 31.7 g/dl (32.0-36.5); MEAN CORPUSCULAR VOLUME 91.5 fl (80.0-96.0); MONO # 0.7 10^3/uL (0.0-0.8); MONO % 10.8 % (2.0-8.0); NEUTROPHILS # 3.4 10^3/uL (1.5-8.5); PLATELET COUNT, AUTOMATED 313 10^3/uL (150-450); WHITE BLOOD COUNT 6.4 10^3/uL (4.0-10.0)
[2024-04-10 15:36] LABS: BLOOD UREA NITROGEN 11 MG/DL (9-23); CALCIUM LEVEL 8.3 MG/DL (8.5-10.1); CARBON DIOXIDE LEVEL 25 MMOL/L (20-31); CHLORIDE LEVEL 102 MMOL/L (98-107); CREATININE FOR GFR 0.73 MG/DL (0.70-1.30); GLOMERULAR FILTRATION RATE > 60.0 (>56); GLUCOSE, FASTING 246 MG/DL (60-100); POTASSIUM SERUM 4.3 MMOL/L (3.5-5.1); SODIUM LEVEL 137 MMOL/L (136-145)
[2024-04-10] MEDS: MULTIVITAMIN -ADULT INJECTION 10 ML, THIAMINE INJection 100 MG, FOLIC ACID 1 MG in NS 1... IV ONE (15:54)
[2024-04-10 17:07] VITALS: O2SAT 98
== END 2024-04-10 19:59 | disposition left against medical advice (07) ==
LOC: EDBD 14:22 → M ED 14:22
DX: F10.129 Alcohol abuse with intoxication, unspecified (principal); Z53.9 Procedure and treatment not carried out, unspecified reason; F41.9 Anxiety disorder, unspecified; F32.A Depression, unspecified; F17.200 Nicotine dependence, unspecified, uncomplicated
CPT/HCPCS: 70450; 70486; 71045; 72125; 80048; 82077; 85025; 93005; 93041; 94760; 96365; 96366; 99285; J3411

== ENCOUNTER 2024-12-28 17:14 | Emergency (ER) | payer MEDICARE, MEDICAID ==
[2024-12-28 18:49] LABS: HEMATOCRIT 23.6 % (42.0-52.0); MEAN CORPUSCULAR HEMOGLOBIN 19.1 pg (27.0-33.0); MEAN CORPUSCULAR HGB CONC 27.5 g/dl (32.0-36.5); MEAN CORPUSCULAR VOLUME 69.4 fl (80.0-96.0); PLATELET COUNT, AUTOMATED 243 10^3/uL (150-450); WHITE BLOOD COUNT 3.5 10^3/uL (4.0-10.0)
[2024-12-28 18:56] LABS: HEMOGLOBIN 6.5 g/dl (13.5-17.5)
[2024-12-28 18:59] LABS: ALKALINE PHOSPHATASE 74 U/L (40-129); ALT/SGPT 22 U/L (7.0-40); AST/SGOT 33 U/L (<34); BILIRUBIN,DIRECT 0.2 MG/DL (<0.4); BILIRUBIN,TOTAL 0.4 MG/DL (0.3-1.2); BLOOD UREA NITROGEN 6 MG/DL (9-23); CALCIUM LEVEL 7.9 MG/DL (8.5-10.1); CARBON DIOXIDE LEVEL 26 MMOL/L (20-31); CHLORIDE LEVEL 103 MMOL/L (98-107); CREATININE FOR GFR 0.73 MG/DL (0.70-1.30); GLOMERULAR FILTRATION RATE > 90.0 (>56); GLUCOSE, FASTING 92 MG/DL (60-100); SALICYLATE LEVEL < 3.0 MG/DL (<30); SODIUM LEVEL 142 MMOL/L (136-145); TOTAL PROTEIN 6.9 G/DL (5.7-8.2)
[2024-12-28 19:01] LABS: THYROID STIMULATING HORMONE 1.329 uIU/ML (0.55-4.78)
[2024-12-28 19:07] LABS: AMPHETAMINES LEVEL URINE NEGATIVE (NEGATIVE); BARBITURATES URINE NEGATIVE (NEGATIVE); BENZODIAZEPINES URINE NEGATIVE (NEGATIVE); CANNABINOIDS URINE NEGATIVE (NEGATIVE); COCAINE METABOLITE URINE NEGATIVE (NEGATIVE); METHADONE URINE NEGATIVE (NEGATIVE); OPIATES URINE NEGATIVE (NEGATIVE); PHENCYCLIDINE URINE NEGATIVE (NEGATIVE)
[2024-12-28 19:19] LABS: INR 1.13; PARTIAL THROMBOPLASTIN TIME 32.2 SECONDS (24.8-34.2); PROTHROMBIN TIME 14.8 SECONDS (12.5-14.5)
[2024-12-28 19:34] LABS: ETHYL ALCOHOL (ETHANOL) 0.379 % (0.000-0.010)
[2024-12-28 20:16] LABS: KETONE, URINE AUTO RFX NEGATIVE (NEGATIVE); LEUKOCYTE ESTERASE UR AUTO RFX NEGATIVE (NEGATIVE); NITRITE, URINE AUTO RFX NEGATIVE (NEGATIVE); RBC, URINE AUTO RFX 0 /HPF (0-3); SQUAM EPITHELIAL CELL UR AURFX 0 /HPF (0-6); WBC, URINE AUTO RFX 0 /HPF (0-3)
[2024-12-28 20:17] LABS: HEMATOCRIT 24.3 % (42.0-52.0); MEAN CORPUSCULAR HEMOGLOBIN 19.3 pg (27.0-33.0); MEAN CORPUSCULAR VOLUME 68.8 fl (80.0-96.0); PLATELET COUNT, AUTOMATED 267 10^3/uL (150-450); RED BLOOD COUNT 3.53 10^6/uL (4.30-6.10); WHITE BLOOD COUNT 4.1 10^3/uL (4.0-10.0)
[2024-12-28 20:20] LABS: HEMOGLOBIN 6.8 g/dl (13.5-17.5)
[2024-12-29] VITALS (8 sets, daily range): BP systolic 118–160; BP diastolic 58–83; TEMP 97.4–98.6; O2SAT 96–100
[2024-12-29] MEDS: MIDAZOLAM INJ 2MG/2ML VIAL IV STA (00:04)
[2024-12-29] MEDS ORDERED: ISOVUE-370 76% 100ML VIAL As Ordered ONE (00:09)
[2024-12-29] MEDS: MIDAZOLAM INJ 2MG/2ML VIAL IV ONE (00:17)
[2024-12-29] MEDS: OXAZEPAM 15MG CAP PO ONE (07:31)
[2024-12-29 08:10] LABS: HEMATOCRIT 28.5 % (42.0-52.0); HEMOGLOBIN 8.5 g/dl (13.5-17.5); MEAN CORPUSCULAR HEMOGLOBIN 21.9 pg (27.0-33.0); MEAN CORPUSCULAR HGB CONC 29.8 g/dl (32.0-36.5); MEAN CORPUSCULAR VOLUME 73.5 fl (80.0-96.0); PLATELET COUNT, AUTOMATED 219 10^3/uL (150-450); RED BLOOD COUNT 3.88 10^6/uL (4.30-6.10); WHITE BLOOD COUNT 7.2 10^3/uL (4.0-10.0)
== END 2024-12-29 09:29 | disposition home or self-care (01) ==
LOC: EDBD 17:14 → M ED 17:14
DX: S00.03XA Contusion of scalp, initial encounter (principal); F10.129 Alcohol abuse with intoxication, unspecified; D64.9 Anemia, unspecified; W19.XXXA Unspecified fall, initial encounter; Y92.410 Unspecified street and highway as the place of occurrence of the external cause; Y93.9 Activity, unspecified; Y99.9 Unspecified external cause status; R16.0 Hepatomegaly, not elsewhere classified; K76.0 Fatty (change of) liver, not elsewhere classified; K57.30 Diverticulosis of large intestine without perforation or abscess without bleeding; M47.812 Spondylosis without myelopathy or radiculopathy, cervical region
CPT/HCPCS: 36430; 70450; 71260; 72125; 73080; 73110; 74174; 80048; 80076; 80143; 80307; 81001; 82077; 84443; 85027; 85610; 85730; 86850; 86900; 86901; 86920; 96374; 96376; 99285; J2250; P9016; Q9967

== ENCOUNTER 2025-03-17 15:28 | Emergency (ER) | payer MEDICARE, MEDICAID ==
[2025-03-17 16:44] LABS: BASO # 0.1 10^3/uL (0.0-0.2); BASO % 1.1 % (0.0-1.0); EOS # 0.0 10^3/uL (0.0-0.5); EOS % 0.5 % (0.0-3.0); LYMPH # 2.2 10^3/uL (1.5-5.0); LYMPH % 34.3 % (24.0-44.0); MONO # 1.0 10^3/uL (0.0-0.8); MONO % 15.2 % (2.0-8.0); NEUTROPHILS # 3.1 10^3/uL (1.5-8.5); NEUTROPHILS % 48.7 % (36.0-66.0); PLATELET COUNT, AUTOMATED 329 10^3/uL (150-450)
[2025-03-17] MEDS: ONDANSETRON 4MG 2ML VIAL IV ONE (16:47)
[2025-03-17 17:12] LABS: ALT/SGPT 42 U/L (7.0-40); AST/SGOT 44 U/L (<34); CALCIUM LEVEL 8.6 MG/DL (8.5-10.1); CARBON DIOXIDE LEVEL 23 MMOL/L (20-31); CHLORIDE LEVEL 98 MMOL/L (98-107); CPK CREATINE PHOSPHOKINASE 88 U/L (46-171); CREATININE FOR GFR 0.67 MG/DL (0.70-1.30); GLOMERULAR FILTRATION RATE > 90.0 (>56); POTASSIUM SERUM 3.8 MMOL/L (3.5-5.1); SALICYLATE LEVEL < 3.0 MG/DL (<30); SODIUM LEVEL 137 MMOL/L (136-145)
[2025-03-17 17:33] LABS: ETHYL ALCOHOL (ETHANOL) 0.354 % (0.000-0.010)
[2025-03-17 19:31] LABS: AMPHETAMINES LEVEL URINE NEGATIVE (NEGATIVE); BARBITURATES URINE NEGATIVE (NEGATIVE); BENZODIAZEPINES URINE NEGATIVE (NEGATIVE); CANNABINOIDS URINE NEGATIVE (NEGATIVE); COCAINE METABOLITE URINE NEGATIVE (NEGATIVE); METHADONE URINE NEGATIVE (NEGATIVE); OPIATES URINE NEGATIVE (NEGATIVE); PHENCYCLIDINE URINE NEGATIVE (NEGATIVE)
[2025-03-18 06:34] VITALS: TEMP 97.7
[2025-03-18 07:50] VITALS: BP 130/83; O2SAT 100
== END 2025-03-18 07:56 | disposition home or self-care (01) ==
LOC: M ED 15:28 → EDBD 15:28 → M ED 03-18 07:56
DX: F10.129 Alcohol abuse with intoxication, unspecified (principal); F32.9 Major depressive disorder, single episode, unspecified; M54.50 Low back pain, unspecified
CPT/HCPCS: 36415; 80048; 80076; 80143; 80307; 82077; 82550; 84443; 85025; 93005; 93041; 94760; 96374; 99285; J2405

== ENCOUNTER 2025-03-18 13:01 | Emergency (ER) | payer MEDICARE, MEDICAID ==
[2025-03-18] MEDS ORDERED: HOME MED LIST COMPLETE! XX SCH (13:20)
[2025-03-18 13:46] VITALS: TEMP 98.3; O2SAT 92
[2025-03-18 14:00] LABS: BASO # 0.1 10^3/uL (0.0-0.2); BASO % 1.1 % (0.0-1.0); EOS # 0.1 10^3/uL (0.0-0.5); EOS % 0.8 % (0.0-3.0); LYMPH # 1.9 10^3/uL (1.5-5.0); LYMPH % 25.2 % (24.0-44.0); MONO # 0.9 10^3/uL (0.0-0.8); MONO % 11.4 % (2.0-8.0); NEUTROPHILS # 4.6 10^3/uL (1.5-8.5); NEUTROPHILS % 61.4 % (36.0-66.0); PLATELET COUNT, AUTOMATED 375 10^3/uL (150-450)
[2025-03-18 14:15] VITALS: BP 110/55
[2025-03-18 14:20] LABS: ETHYL ALCOHOL (ETHANOL) 0.288 % (0.000-0.010)
[2025-03-18 14:21] LABS: CALCIUM LEVEL 8.6 MG/DL (8.5-10.1); CARBON DIOXIDE LEVEL 22 MMOL/L (20-31); CHLORIDE LEVEL 96 MMOL/L (98-107); CREATININE FOR GFR 0.79 MG/DL (0.70-1.30); GLOMERULAR FILTRATION RATE > 90.0 (>56); POTASSIUM SERUM 4.2 MMOL/L (3.5-5.1); SODIUM LEVEL 138 MMOL/L (136-145)
== END 2025-03-18 15:25 | disposition left against medical advice (07) ==
LOC: M ED 13:01 → EDBD 13:01 → M ED 15:25
DX: F10.129 Alcohol abuse with intoxication, unspecified (principal); Z53.9 Procedure and treatment not carried out, unspecified reason

== ENCOUNTER 2025-03-30 01:33 | Emergency (ER) | payer MEDICARE, MEDICAID ==
[~2025-03-30] VITALS: Ht 165.1 cm; Wt 68.2 kg
[2025-03-30 01:38] VITALS: BP 120/61; TEMP 98.7; O2SAT 98
== END 2025-03-30 02:27 | disposition left against medical advice (07) ==
LOC: M ED 01:33
DX: Z53.21 Procedure and treatment not carried out due to patient leaving prior to being seen by health care provider (principal)

== ENCOUNTER 2025-04-01 15:58 | Emergency (ER) | payer MEDICARE, MEDICAID ==
[2025-04-01 23:55] VITALS: BP 132/70; TEMP 97.2; O2SAT 95
== END 2025-04-02 | disposition home or self-care (01) ==
LOC: EDBD 15:58 → M ED 15:58
DX: S00.83XA Contusion of other part of head, initial encounter (principal); F10.10 Alcohol abuse, uncomplicated; W19.XXXA Unspecified fall, initial encounter; Y92.9 Unspecified place or not applicable; Y93.9 Activity, unspecified; Y99.9 Unspecified external cause status; M54.50 Low back pain, unspecified; F41.9 Anxiety disorder, unspecified; F32.9 Major depressive disorder, single episode, unspecified

== ENCOUNTER 2025-04-09 20:20 | Emergency (ER) | payer MEDICARE, MEDICAID ==
[2025-04-09 20:28] VITALS: BP 111/68; TEMP 98.9; O2SAT 96
== END 2025-04-09 23:09 | disposition left against medical advice (07) ==
LOC: M ED 20:20
DX: Z53.21 Procedure and treatment not carried out due to patient leaving prior to being seen by health care provider (principal)

== ENCOUNTER 2025-06-07 14:08 | Emergency (ER) | payer MEDICARE, MEDICAID ==
[2025-06-07 22:28] VITALS: BP 128/79; TEMP 98.5; O2SAT 99
== END 2025-06-07 22:28 | disposition home or self-care (01) ==
LOC: M ED 14:08 → EDBD 14:08 → M ED 22:28
DX: F10.10 Alcohol abuse, uncomplicated (principal); M25.551 Pain in right hip; F32.A Depression, unspecified; F41.9 Anxiety disorder, unspecified; M54.50 Low back pain, unspecified

== ENCOUNTER 2025-06-17 20:50 | Emergency (ER) | payer MEDICARE, MEDICAID ==
[2025-06-17 21:55] LABS: PLATELET COUNT, AUTOMATED 265 10^3/uL (150-450)
[2025-06-17] MEDS ORDERED: HOME MED LIST COMPLETE! XX SCH (22:15)
[2025-06-17 22:50] LABS: ALT/SGPT 32 U/L (7.0-40); AST/SGOT 30 U/L (<34); CALCIUM LEVEL 8.3 MG/DL (8.5-10.1); CARBON DIOXIDE LEVEL 26 MMOL/L (20-31); CHLORIDE LEVEL 100 MMOL/L (98-107); CREATININE FOR GFR 0.79 MG/DL (0.70-1.30); ETHYL ALCOHOL (ETHANOL) 0.252 % (0.000-0.010); GLOMERULAR FILTRATION RATE > 90.0 (>56); POTASSIUM SERUM 4.1 MMOL/L (3.5-5.1); SALICYLATE LEVEL < 3.0 MG/DL (<30); SODIUM LEVEL 137 MMOL/L (136-145)
[2025-06-17 23:26] LABS: AMPHETAMINES LEVEL URINE NEGATIVE (NEGATIVE); BARBITURATES URINE NEGATIVE (NEGATIVE); BENZODIAZEPINES URINE NEGATIVE (NEGATIVE); COCAINE METABOLITE URINE NEGATIVE (NEGATIVE); METHADONE URINE NEGATIVE (NEGATIVE)
[2025-06-17 23:27] LABS: CANNABINOIDS URINE NEGATIVE (NEGATIVE); OPIATES URINE NEGATIVE (NEGATIVE); PHENCYCLIDINE URINE NEGATIVE (NEGATIVE)
[2025-06-18] MEDS: FOLIC ACID 1 MG TAB PO SCH (09:13)
[2025-06-18] MEDS: THIAMINE 100 MG TAB PO SCH (09:13)
[2025-06-18] MEDS: MULTIVITAMINS/MINERALS THERAP 1 TAB PO SCH (09:13)
[2025-06-18 09:19] VITALS: BP 154/74; TEMP 97.8; O2SAT 100
== END 2025-06-18 10:00 | disposition home or self-care (01) ==
LOC: M ED 20:50
DX: F10.129 Alcohol abuse with intoxication, unspecified (principal); F32.A Depression, unspecified; F41.9 Anxiety disorder, unspecified; Z87.820 Personal history of traumatic brain injury; F17.200 Nicotine dependence, unspecified, uncomplicated

== ENCOUNTER 2025-08-13 12:55 | Emergency (ER) | payer MEDICARE, MEDICAID ==
[2025-08-13 14:07] LABS: BASO # 0.1 10^3/uL (0.0-0.2); BASO % 1.2 % (0.0-1.0); EOS # 0.3 10^3/uL (0.0-0.5); EOS % 3.6 % (0.0-3.0); LYMPH # 3.3 10^3/uL (1.5-5.0); LYMPH % 44.6 % (24.0-44.0); MONO # 1.2 10^3/uL (0.0-0.8); MONO % 16.0 % (2.0-8.0); NEUTROPHILS # 2.5 10^3/uL (1.5-8.5); NEUTROPHILS % 34.5 % (36.0-66.0); PLATELET COUNT, AUTOMATED 443 10^3/uL (150-450)
[2025-08-13 14:10] LABS: CK-MB VALUE MASS 3.8 NG/ML (<3.6)
[2025-08-13 14:15] LABS: ALT/SGPT 26 U/L (7.0-40); AST/SGOT 35 U/L (<34); CALCIUM LEVEL 8.6 MG/DL (8.5-10.1); CARBON DIOXIDE LEVEL 26 MMOL/L (20-31); CHLORIDE LEVEL 102 MMOL/L (98-107); CPK CREATINE PHOSPHOKINASE 108 U/L (46-171); CREATININE FOR GFR 0.95 MG/DL (0.70-1.30); GLOMERULAR FILTRATION RATE > 90.0 (>56); MB/CK RELATIVE INDEX 3.51 (< OR =4); POTASSIUM SERUM 4.1 MMOL/L (3.5-5.1); SALICYLATE LEVEL < 3.0 MG/DL (<30); SODIUM LEVEL 140 MMOL/L (136-145)
[2025-08-13 14:28] LABS: KETONE, URINE AUTO RFX NEGATIVE (NEGATIVE); LEUKOCYTE ESTERASE UR AUTO RFX NEGATIVE (NEGATIVE); NITRITE, URINE AUTO RFX NEGATIVE (NEGATIVE); RBC, URINE AUTO RFX 0 /HPF (0-3); SQUAM EPITHELIAL CELL UR AURFX 0 /HPF (0-6); WBC, URINE AUTO RFX 0 /HPF (0-3)
[2025-08-13 14:35] LABS: ETHYL ALCOHOL (ETHANOL) 0.413 % (0.000-0.010)
[2025-08-13] MEDS: MULTIVITAMIN -ADULT INJECTION 10 ML, THIAMINE INJection 100 MG, FOLIC ACID 1 MG in NS (... IV ONE (14:35)
[2025-08-13 14:59] LABS: AMPHETAMINES LEVEL URINE NEGATIVE (NEGATIVE)
[2025-08-13 15:00] LABS: BARBITURATES URINE NEGATIVE (NEGATIVE); BENZODIAZEPINES URINE NEGATIVE (NEGATIVE); CANNABINOIDS URINE NEGATIVE (NEGATIVE); COCAINE METABOLITE URINE NEGATIVE (NEGATIVE); METHADONE URINE NEGATIVE (NEGATIVE); OPIATES URINE NEGATIVE (NEGATIVE); PHENCYCLIDINE URINE NEGATIVE (NEGATIVE)
[2025-08-13 16:05] LABS: CK-MB VALUE MASS 4.2 NG/ML (<3.6)
[2025-08-13 16:26] LABS: CPK CREATINE PHOSPHOKINASE 116.0 U/L (46-171); MB/CK RELATIVE INDEX 3.62 (< OR =4)
[2025-08-13] MEDS: cefTRIAXone SOD 1 GM in DEXTROSE 5% (D5W) ADV/MINI-BAG 50 ML IV ONE (17:47)
[2025-08-13] MEDS: AZITHROMYCIN INJ 500 MG, VIAL MATE ADAPTER 1 EACH in NS 250 ML IV ONE (18:43)
[2025-08-13 19:15] VITALS: TEMP 96.4
[2025-08-14 02:50] VITALS: O2SAT 96
[2025-08-14 04:32] VITALS: BP 142/63; O2SAT 93
== END 2025-08-14 05:36 | disposition home or self-care (01) ==
LOC: M ED 12:55 → EDBD 12:55 → M ED 08-14 05:36
DX: F10.129 Alcohol abuse with intoxication, unspecified (principal); F32.A Depression, unspecified; F41.9 Anxiety disorder, unspecified; M54.9 Dorsalgia, unspecified; Z87.820 Personal history of traumatic brain injury; F17.200 Nicotine dependence, unspecified, uncomplicated; F17.220 Nicotine dependence, chewing tobacco, uncomplicated
CPT/HCPCS: 70450; 71045; 72125; 80048; 80076; 80143; 80307; 81001; 82077; 82550; 82553; 84443; 84484; 85025; 87040; 87077; 87154; 87186; 93005; 93041; 94760; 96365; 96366; 96368; 99285; J0456; J0696; J1808; J3411